=== PATIENT | female | born 1930 | race Caucasian/White ===

== ENCOUNTER → 2016-04-22 | Outpatient (REF) | payer MEDICARE, BC | LOC: M LAB REF 17:11 | PROVIDERS: ATTEND Nurse Practitioner Adult Health | DX: I10 Essential (primary) hypertension (principal) ==

== ENCOUNTER 2018-04-03 08:21 | Emergency (ER) | payer MEDICARE, BC ==
[~2018-04-03] VITALS: Ht 157.5 cm; Wt 77.3 kg
[2018-04-03] MEDS ORDERED: OMEP40CA2 PO (08:28)
[2018-04-03] MEDS ORDERED: HYDR12.55 PO (08:28)
[2018-04-03] MEDS ORDERED: LOSA50TA73 PO (08:29)
[2018-04-03] MEDS ORDERED: LEVO100T5 PO (08:29)
[2018-04-03] MEDS ORDERED: ASPI81TA85 PO (08:29)
[2018-04-03] MEDS ORDERED: SIMV40TA2 PO (08:29)
[2018-04-03] MEDS ORDERED: ACETAMINOPHEN 325 MG TAB PO ONE (08:45)
--- NOTE | 2018-04-03 09:23 | REP ---
Clinical: Atraumatic ankle pain. Technique: AP, lateral, bilateral oblique views of the left ankle. Findings: Age-related osteodystrophy and degenerative changes are appreciated. No evidence for acute fracture or dislocation. Ankle mortise is intact. Mild soft tissue swelling cannot be excluded and should be correlated clinically. Lateral view demonstrates moderate calcaneal heal spur as well as calcifications of the calcaneal insertion of the Achilles tendon. 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 No acute fracture dislocation. Electronically Signed by Aidan Martin MD 04/03/2018 09:15 A
[2018-04-03] MEDS ORDERED: ARTH650T11 PO (09:51)
[2018-04-03 10:02] VITALS: BP 133/63
== END 2018-04-03 10:05 | disposition home or self-care (01) ==
LOC: M ED 08:21
DX: M19.072 Primary osteoarthritis, left ankle and foot (principal); I10 Essential (primary) hypertension; E03.9 Hypothyroidism, unspecified; K21.9 Gastro-esophageal reflux disease without esophagitis; G62.9 Polyneuropathy, unspecified; F17.200 Nicotine dependence, unspecified, uncomplicated; Z79.899 Other long term (current) drug therapy; Z79.82 Long term (current) use of aspirin

== ENCOUNTER 2018-12-31 15:31 | Emergency (ER) | payer MEDICARE, BC ==
[~2018-12-31] VITALS: Ht 157.5 cm; Wt 76.8 kg
[~2018-12-31 15:31] MED LIST: ARTH650T4 PO; ASPI81TA85 PO; HYDR12.55 PO; LEVO100T5 PO; LOSA50TA88 PO; OMEP40CA97 PO; SIMV40TA20 PO
[2018-12-31 18:21] LABS: BASO % 0.3 % (0.0-1.0); EOS # 0.1 10^3/uL (0.0-0.5); EOS % 1.1 % (0.0-3.0); HEMATOCRIT 40.9 % (36.0-47.0); HEMOGLOBIN 13.5 g/dl (12.0-15.5); LYMPH # 0.5 10^3/uL (1.5-5.0); LYMPH % 4.9 % (24.0-44.0); MEAN CORPUSCULAR HEMOGLOBIN 31.3 pg (27.0-33.0); MEAN CORPUSCULAR VOLUME 94.7 fl (80.0-96.0); MONO # 0.4 10^3/uL (0.0-0.8); MONO % 3.7 % (0.0-5.0); NEUTROPHILS # 9.8 10^3/uL (1.5-8.5); NEUTROPHILS % 89.5 % (36.0-66.0); PLATELET COUNT, AUTOMATED 260 10^3/uL (150-450); RED BLOOD COUNT 4.32 10^6/uL (4.00-5.40)
[2018-12-31 18:35] LABS: INR 1.14; PROTHROMBIN TIME 14.3 SECONDS (11.8-14.0)
[2018-12-31 18:36] LABS: PARTIAL THROMBOPLASTIN TIME 35.8 SECONDS (25.0-38.4)
[2018-12-31 18:52] LABS: ALBUMIN 3.3 GM/DL (3.2-5.2); ALT/SGPT 23 U/L (12-78); BILIRUBIN,DIRECT < 0.1 MG/DL (0.0-0.2); BILIRUBIN,TOTAL 0.3 MG/DL (0.2-1.0); BLOOD UREA NITROGEN 27 MG/DL (7-18); CALCIUM LEVEL 8.8 MG/DL (8.8-10.2); CARBON DIOXIDE LEVEL 23 MEQ/L (21-32); CHLORIDE LEVEL 107 MEQ/L (98-107); CK-MB VALUE MASS 1.5 NG/ML (<3.6); CPK CREATINE PHOSPHOKINASE 46 U/L (26-192); CREATININE FOR GFR 0.86 MG/DL (0.55-1.30); GLOMERULAR FILTRATION RATE > 60.0 (>32); GLUCOSE, FASTING 103 MG/DL (70-100); LIPASE 162 U/L (73-393); MB/CK RELATIVE INDEX 3.26 (< OR =4); POTASSIUM SERUM 3.8 MEQ/L (3.5-5.1); SODIUM LEVEL 140 MEQ/L (136-145); TOTAL PROTEIN 7.2 GM/DL (6.4-8.2); TROPONIN I < 0.02 NG/ML (< 0.10)
[2018-12-31] MEDS ORDERED: NS 500 ML IV ONE (20:00)
[2018-12-31] MEDS ORDERED: ISOVUE-370 76% 100ML VIAL (Q9967) As Ordered ONE (20:01)
--- NOTE | 2018-12-31 21:06 | REPVR ---
PROCEDURE INFORMATION: Exam: CT Chest With Contrast Exam date and time: 12/31/2018 8:05 PM Clinical history: 88 years old, female; Abnormal findings; Abnormal radiologic exam of lung or chest; Additional info: B/l lung densities cxr- CT recommended TECHNIQUE: Imaging protocol: Computed tomography of the chest with intravenous contrast. 3D rendering: MIP reconstructed images were created and reviewed. Radiation optimization: All CT scans at this facility use at least one of these dose optimization techniques: automated exposure control; mA and/or kV adjustment per patient size (includes targeted exams where dose is matched to clinical indication); or iterative reconstruction. Contrast material: ISOVUE 370; Contrast volume: 75 ml; Contrast route: IV; COMPARISON: CR Chest, 2 view PA, Lat 12/31/2018 5:49 PM FINDINGS: Lungs: Prominent subpleural interstitial markings with subpleural bullous changes. There are numerous irregular densities with some retraction, any of which may reflect malignancy. There is a lobular mass in the lateral right apex with stranding extending into the surrounding lung parenchyma which is viewed with a high level of suspicion measuring 16 x 14 x 14 mm. There is an area of irregular density with stranding and retraction of the major fissure in the posterior right upper lobe which may reflect a focus of scar although malignancy is not excluded and measures approximately 3.0 x 1.3 x 1.8 cm. There is a small nodule in the lateral right upper lobe which is irregular and measures 7 mm which may reflect a satellite lesion. There is some stranding and irregular density in the superior segment of the left lower lobe with minimal volumetric soft tissue components with an irregular area which measures 11 mm and may reflect scar although associated malignancy is not excluded. There is minimal scattered fibro-atelectatic change. Pleural space: Unremarkable. No pneumothorax. No pleural effusion. Heart: Unremarkable. No cardiomegaly. No pericardial effusion. Aorta: Unremarkable. No aortic aneurysm. Other arteries: Prominent calcified plaque at the origin of the celiac artery where probable high-grade stenosis. There is soft plaque in the caudal left aspect of the proximal SMA with mild segmental stenosis. Plaque with mild origin stenoses of the renal arteries. Lymph nodes: Unremarkable. No enlarged lymph nodes. Gallbladder and bile ducts: The gallbladder measures 4.0 cm in diameter with no stones. The CBD measures 7 mm. Bones/joints: Posterior osteophytes at L1-L2 centrally with moderate secondary spinal stenosis. Soft tissues: Unremarkable. IMPRESSION: 1. Subpleural interstitial prominence with bullous change and minimal scattered fibro-atelectatic change consistent with underlying lung disease. 2. There are several irregular nodular densities bilaterally. The most suspicious is in the lateral right apex measuring 16 x 14 x 14 mm. The second most suspicious area is irregular in the posterior right upper lobe adjacent to the major fissure measuring 3.0 x 1.3 x 1.8 cm. There is also an area of stranding minimal volumetric soft tissue in the superior segment of the left lower lobe with largest solid soft tissue component measuring 11 mm and may reflect scar although malignancy is not excluded. There is a 7 mm irregular nodule in the lateral right upper lobe which may reflect a satellite lesion. Highly suspicious nodule(s). Consider PET/CT, or tissue sampling.(Courtney et al., Fleischner Society, 2017). 3. 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 There is probable mild origin stenoses of the renal arteries. 4. Borderline distention of the gallbladder with mild dilatation of the CBD measuring 7 mm with tapering to the ampulla. 5. Posterior central osteophytes at L1-L2 with moderate secondary spinal stenosis. Electronically signed by: Harjit Vaughn On 12/31/2018 21:06:11 PM
[2018-12-31 21:20] LABS: CK-MB VALUE MASS 1.5 NG/ML (<3.6); CPK CREATINE PHOSPHOKINASE 29 U/L (26-192); MB/CK RELATIVE INDEX 5.17 (< OR =4); TROPONIN I < 0.02 NG/ML (< 0.10)
--- NOTE | 2018-12-31 22:07 | ECGEPIP ---
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
[2018-12-31] MEDS ORDERED: GI COCKTAIL 50ML BTL(HYOSCYAMINE/MAALOX/LIDOCAINE VISCOUS)(1:3:1) PO ONE (22:15)
[2019-01-01 00:12] VITALS: BP 156/72
--- NOTE | 2019-01-01 07:01 | REP ---
CHEST PA AND LATERAL: 12/31/2018. Clinical history: Abdominal pain. Comparison: Portable chest 04/11/2014. Findings: Lungs are well inflated. This eventration of the right diaphragm. Some fibrotic changes are seen in the mid upper lung zones. Irregular densities could be pleural or parenchymal in both upper lung zones. There is no definite effusion, heart has left ventricular configuration with some mild left atrial enlargement also suggested. The aorta is tortuous, ectatic and with calcifications at the arch. Airway intact. These are unchanged. The hilar are symmetric. Bony thorax shows no acute compression deformity. Impression: 1. Pleural and/or parenchymal densities in the upper lung zones bilaterally. I could not exclude multifocal infiltrates or nodules versus pleural plaques or scar. CT recommended. Findings not visible on the portable chest 4 years ago. 2. Left ventricular configuration of the heart without vascular redistribution or pulmonary edema. 3. Tortuous, calcified and ectatic aorta, stable from prior. Electronically Signed by Brian Hooper MD 01/01/2019 08:15 A
--- NOTE | 2019-01-02 10:28 | ED PDOC ---
Post-Departure Follow-Up dr kay faxed formal report of cxr and ct chest for fu Daniel Jones MD Jan 02, 2019 10:28
[2019-01-16] MEDS ORDERED: MULTTAB61 PO (11:55)
== END 2019-01-01 00:40 | disposition home or self-care (01) ==
LOC: M ED 15:31
DX: K52.9 Noninfective gastroenteritis and colitis, unspecified (principal); R10.9 Unspecified abdominal pain; R91.8 Other nonspecific abnormal finding of lung field; I77.4 Celiac artery compression syndrome; K55.1 Chronic vascular disorders of intestine; M25.78 Osteophyte, vertebrae; Q25.46 Tortuous aortic arch; I70.0 Atherosclerosis of aorta; I77.819 Aortic ectasia, unspecified site; I10 Essential (primary) hypertension; E78.5 Hyperlipidemia, unspecified; Z87.448 Personal history of other diseases of urinary system; K21.9 Gastro-esophageal reflux disease without esophagitis; G62.9 Polyneuropathy, unspecified; E03.9 Hypothyroidism, unspecified; F17.200 Nicotine dependence, unspecified, uncomplicated; Z82.49 Family history of ischemic heart disease and other diseases of the circulatory system; Z79.82 Long term (current) use of aspirin; Z79.899 Other long term (current) drug therapy
CPT/HCPCS: 36415; 71046; 71260; 80048; 80076; 81001; 82550; 82553; 83690; 84484; 85025; 85610; 85730; 93005; 99284; Q9967

== ENCOUNTER 2019-01-30 06:00 | Day surgery (SDC) | payer MEDICARE, BC ==
[~2019-01-30] VITALS: Ht 157.5 cm; Wt 73.8 kg
[~2019-01-30 06:00] MED LIST changes: +ARTH650T11 PO; -ARTH650T4 PO; +MULTTAB61 PO; +SIMV40TA2 PO; -SIMV40TA20 PO
[2019-01-30] MEDS ORDERED: LR 1,000 ML IV ONE (07:00)
[2019-01-30] MEDS ORDERED: LIDOCAINE 1% SDV INJ 30 ML VIAL As Ordered ONE (07:11)
[2019-01-30] MEDS ORDERED: CETACAINE SPRAY 5GM As Ordered ONE (07:11)
[2019-01-30] MEDS ORDERED: EPINEPHrine 1MG/10ML SYRINGE 1.5IN As Ordered ONE (07:11)
[2019-01-30] MEDS ORDERED: THROMBIN SOLN 5,000 UNITS VIAL As Ordered ONE (07:11)
[2019-01-30] MEDS ORDERED: LIDOCAINE VISCOUS 2% SOLN 15ML UDC As Ordered ONE (07:12)
[2019-01-30] MEDS ORDERED: fentaNYL 100 MCG/2 ML INJECTION (J3010) As Ordered ONE (07:45)
[2019-01-30] MEDS ORDERED: PROPOFOL 200 MG/20 ML VIAL As Ordered ONE (07:45)
[2019-01-30] MEDS ORDERED: METOCLOPRAMIDE INJ 10MG/2ML VIAL (J2765) As Ordered ONE (07:45)
[2019-01-30] MEDS ORDERED: SUGAMMADEX SODIUM 500 MG/5 ML VIAL (BRIDION) As Ordered ONE (07:45)
[2019-01-30] MEDS ORDERED: ONDANSETRON 4MG/2ML VIAL (J2405) As Ordered ONE (07:45)
[2019-01-30] MEDS ORDERED: ROCURONIUM BROMIDE 50 MG/5 ML VIAL As Ordered ONE (07:45)
[2019-01-30] MEDS ORDERED: dexameTHASONE 4 MG/ML 1ML VIAL (J1100) As Ordered ONE (07:45)
[2019-01-30] MEDS ORDERED: LIDOCAINE 2% INJ 100 MG/5 ML SDV (FOR ANES.) As Ordered ONE (07:45)
[2019-01-30] MEDS ORDERED: ePHEDrine SULFATE 25 MG/5 ML(5MG/ML) SYRINGE As Ordered ONE (07:50)
[2019-01-30] MEDS ORDERED: LR 1,000 ML IV SCH (09:00)
[2019-01-30] MEDS ORDERED: ONDANSETRON 4MG/2ML VIAL (J2405) IV PRN (09:00)
[2019-01-30] MEDS ORDERED: fentaNYL 100 MCG/2 ML INJECTION (J3010) IV PRN (09:00)
[2019-01-30] MEDS ORDERED: METOCLOPRAMIDE INJ 10MG/2ML VIAL (J2765) IV PRN (09:00)
[2019-01-30] MEDS ORDERED: PERCOCET 5MG/325MG TAB PO PRN (09:00)
--- NOTE | 2019-01-30 09:12 | RO ---
DATE OF PROCEDURE: 01/30/2019 PREOPERATIVE DIAGNOSIS: Abnormal chest CT, multiple pulmonary nodules. POSTOPERATIVE DIAGNOSIS: Abnormal chest CT, multiple pulmonary nodules. FINDINGS: Dried secretions, minimal banding. PROCEDURE: Bronchoscopy with electromagnetic navigation and radial ultrasound. SURGEON: Dr. Geo Yarbrough BUSINESS ANALYST CONSULTANT: None ANESTHESIA: General. ESTIMATED BLOOD LOSS: 5 mL. SPECIMENS OBTAINED: 1. Cytology brush right upper lobe apical segment. 2. Transbronchial biopsies right upper lobe apical segment. 3. Fine needle aspiration (FNA) right upper lobe apical segment. 4. Bronchoalveolar lavage (BAL) right upper lobe apical segment. 5. Cytobrush left lower lobe superior segment. 6. Transbronchial biopsy left lower lobe superior segment. 7. BAL left lower lobe superior segment. 8. Cyto needle brush right upper lobe posterior segment. 9. Transbronchial biopsies right upper lobe posterior segment. No observed complications. DESCRIPTION OF PROCEDURE: After informed consent was reviewed with the patient in the preoperative area, she was brought back to operating room (OR) number 8, which is a pre mapped room. General anesthesia was initiated with an 8.5 endotracheal tube and the case was handed over to me. A time out was performed with two patient identifiers, identifying correct site and correct procedure. The 1T-190 bronchoscope was then inserted. There were large amounts of secretions just distal to the tube that were suctioned, dried mucus secretions. All airways were suctioned. The airways did appear fairly dry with some banding and pitting throughout the airways. The trachea itself was midline. The gil was sharp. Right and left bronchus was normal except for minimal amounts of secretions. Secretions were clear. RB1-10 was inspected. There was some minimal fishmouthing of the right upper lobe, but no significant endobronchial lesions. There was banding and pitting. RB1-3 without endobronchial lesions, RB4-10 were without endobronchial lesions. I then went to the left side. The left mainstem was normal. LB1-10 again without endobronchial lesions, but some banding. The bronchoscope was then retracted into the endotracheal tube and the navigational guide was inserted. Target #1 in the right upper lobe apical segment was then navigated to. This was confirmed with fluoroscopy. The LG guide was removed. Radial ultrasound probe was then inserted to ensure tissues. The LG guide was then removed. Biopsies were then performed in the form of a cytology brush, transbronchial biopsies, GenCut FNA, and then BAL based on the fact that there was quite a bit of macrophages in the area. The LG guide was then removed from this area during that BAL. I then navigated to target #2 in the left lower lobe superior segment. Cytology brush transbronchial biopsies and BAL was then performed. I then again navigated to target #3 in the right upper lobe posterior segment. Cyto needle brush and transbronchial biopsies were performed. After adequate sampling, the LG guide was removed. Hemostasis was assured. All airways were suctioned. There were no observed complications. A postprocedure chest x-ray is pending. [facility]
--- NOTE | 2019-01-30 09:45 | REP ---
Single view chest: Indication: Postprocedural assessment. Comparison: Chest CT dated 12/31/2018. Findings: There is no pneumothorax or significant pleural effusion. The multiple pulmonary nodules are better demonstrated on the recent CT evaluation. Cardiac silhouette is at the upper limits of normal. Impression: No pneumothorax. Electronically Signed by Stu Aleman DO 01/30/2019 09:36 A
[2019-01-30 10:08] VITALS: BP 160/70
[2019-01-30 14:54] LABS: SOURCE LEFT LOWER LOBE
[2019-01-30 14:55] LABS: APPEARANCE HAZY (CLEAR); COLOR RED (COLORLESS)
[2019-01-30 14:57] LABS: APPEARANCE HAZY (CLEAR); COLOR PINK (COLORLESS); SOURCE RIGHT UPPER LOBE
== END 2019-01-30 10:27 | disposition home or self-care (01) ==
LOC: M SDC 06:00
PROVIDERS: ATTEND Internal Medicine Pulmonary Disease
DX: R91.8 Other nonspecific abnormal finding of lung field (principal); J43.1 Panlobular emphysema; E03.9 Hypothyroidism, unspecified; I10 Essential (primary) hypertension; E78.00 Pure hypercholesterolemia, unspecified; Z79.899 Other long term (current) drug therapy; F17.218 Nicotine dependence, cigarettes, with other nicotine-induced disorders
CPT/HCPCS: 31623; 31624; 31627; 31628; 31629; 31652; 71045; 76000; 87070; 87102; 87116; 87205; 87206; 88104; 88173; 88305; 89050; J1100; J2405; J2765; J3010

== ENCOUNTER 2019-05-07 07:29 | Emergency (ER) | payer MEDICARE, BC ==
[~2019-05-07] VITALS: Ht 160 cm; Wt 76.4 kg
[~2019-05-07 07:29] MED LIST changes: -ARTH650T11 PO; +ARTH650T4 PO; -SIMV40TA2 PO; +SIMV40TA20 PO
[2019-05-07] MEDS ORDERED: ASPIRIN 81 MG CHEW TABLET PO ONE (08:00)
[2019-05-07] MEDS: MORPHINE 2 MG/ML 1ML VIAL (J2270) IV PRN ×2 (08:04→08:43)
--- NOTE | 2019-05-07 08:06 | ECGEPIP ---
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
[2019-05-07] MEDS ORDERED: KETOROLAC 30 MG/ML VIAL (J1885) As Ordered ONE (08:11)
[2019-05-07] MEDS ORDERED: ISOVUE-370 76% 100ML VIAL (Q9967) As Ordered ONE (08:13)
--- NOTE | 2019-05-07 08:14 | REP ---
Portable chest , 07:55 a.m., single AP view with the patient sitting: Comparisons are the portable chest dated 01/30/[address] dated 12/31/2018. On the comparison chest CT there were multiple lung nodules, particularly in the upper lung zones. These are better appreciated by CT than on plain films. Some of these nodules were visible on 01/30/2019 but are not visible today. Follow-up chest CT might be considered for evaluation of these lung nodules. A few nodular densities are identified superiorly in the left lung today. The interstitium is mildly coarsened diffusely, however this is unchanged, suggestive of chronic lung disease. The left costophrenic angle is effaced. This could represent a left pleural effusion or could represent artifact from portable positioning. Cardiac size appears enlarged, unchanged. Impression: Nodular densities as described. Chest CT might be considered. Question left pleural effusion versus artifact from portable positioning. Cardiomegaly. Chronically mildly coarsened interstitium. Electronically Signed by Lex Wagner MD 05/07/2019 08:06 A
[2019-05-07] MEDS ORDERED: NS 1,000 ML IV ONE (08:15)
[2019-05-07] MEDS ORDERED: KETOROLAC 30 MG/ML VIAL (J1885) IV ONE (08:15)
[2019-05-07 08:18] LABS: BASO # 0.1 10^3/uL (0.0-0.2); BASO % 0.7 % (0.0-1.0); EOS # 0.2 10^3/uL (0.0-0.5); EOS % 1.6 % (0.0-3.0); HEMATOCRIT 38.8 % (36.0-47.0); HEMOGLOBIN 12.6 g/dl (12.0-15.5); LYMPH # 1.6 10^3/uL (1.5-5.0); LYMPH % 13.4 % (24.0-44.0); MEAN CORPUSCULAR HEMOGLOBIN 30.3 pg (27.0-33.0); MEAN CORPUSCULAR HGB CONC 32.5 g/dl (32.0-36.5); MEAN CORPUSCULAR VOLUME 93.3 fl (80.0-96.0); MONO # 0.8 10^3/uL (0.0-0.8); MONO % 7.1 % (0.0-5.0); NEUTROPHILS # 8.9 10^3/uL (1.5-8.5); NEUTROPHILS % 76.9 % (36.0-66.0); PLATELET COUNT, AUTOMATED 304 10^3/uL (150-450); RED BLOOD COUNT 4.16 10^6/uL (4.00-5.40); WHITE BLOOD COUNT 11.5 10^3/uL (4.0-10.0)
[2019-05-07 08:28] LABS: INR 1.15; PROTHROMBIN TIME 14.4 SECONDS (11.8-14.0)
[2019-05-07 08:30] LABS: PARTIAL THROMBOPLASTIN TIME 43.8 SECONDS (25.0-38.4)
[2019-05-07 08:47] LABS: ALBUMIN 3.6 GM/DL (3.2-5.2); ALT/SGPT 18 U/L (12-78); BILIRUBIN,DIRECT 0.2 MG/DL (0.0-0.2); BILIRUBIN,TOTAL 0.6 MG/DL (0.2-1.0); CK-MB VALUE MASS 1.9 NG/ML (<3.6); CPK CREATINE PHOSPHOKINASE 29 U/L (26-192); FREE T4 1.55 NG/DL (0.76-1.46); LIPASE 99 U/L (73-393); MB/CK RELATIVE INDEX 6.55 (< OR =4); NT-PRO BNP 297 PG/ML (<450); TOTAL PROTEIN 7.3 GM/DL (6.4-8.2); TROPONIN I < 0.02 NG/ML (< 0.10)
--- NOTE | 2019-05-07 09:02 | REP ---
CT of the chest with IV contrast, CT pulmonary artery angiography: Comparison is the chest CT of 12/31/2018. On the current study there are bilateral lower lobe infiltrates as an interval change. There are irregular nodules in the right upper lobe that have not significantly changed in size. There is an irregular nodule in the superior segment of the left lower lobe that has increased in density and size. This measures 2.3 cm today and measured 1.2 cm previously. There is a stranding extending medially from the nodule as previously. There are subpleural bulla throughout the lung dunn bilaterally, unchanged. There are no emboli in the pulmonary trunk or central pulmonary arteries. There are no emboli in the pulmonary lobe or segment branches. The thoracic aorta is unremarkable except for calcified atheroma. Cardiac size is enlarged, unchanged. There is no pericardial effusion. In the upper abdomen the visualized areas of the liver, gallbladder, pancreas and spleen are unremarkable. There is no adrenal mass. Calcified atheroma is again noted at the origins of the celiac artery and SMA also resulting in stenosis. There is no mediastinal, hilar or axillary lymphadenopathy. Impression: Bilateral lower lobe infiltrates. Bilateral lung nodules as described. Bilateral subpleural bulla. Cardiomegaly without pericardial effusion. 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 Electronically Signed by Lex Wagner MD 05/07/2019 08:53 A
--- NOTE | 2019-05-07 09:10 | REP ---
CT of the abdomen and pelvis with IV contrast, without bowel contrast: Studies performed. Contiguous with the chest CT this same date. There are no comparisons. The hepatic parenchyma, gallbladder, pancreas and spleen are normal size and unremarkable. The adrenals are unremarkable. The kidneys are unremarkable. The abdominal aorta is unremarkable except for occasional calcified atheroma. There is calcified atheroma at the origin of the SMA and celiac artery. The, possibly resulting in stenosis. There is no periaortic adenopathy or mass. There is no bowel distension or obstruction. The mesentery is unremarkable. There is no ascites. There are diverticula in the descending colon and sigmoid colon without diverticulitis. Pelvis: The the patient indicates she has an appendectomy. The cecum is on a redundant mesentery and resides medial to the descending colon. The uterus and adnexa are unremarkable. The bladder is unremarkable. There is no adenopathy or ascites. 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 There is a large osteophyte projecting posteriorly at the L1-2 disc space encroaching the spinal canal at this level. Impression: There is no bowel distension or obstruction. There is no ascites, adenopathy or mass. There is diverticulosis without diverticulitis. 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 Appendectomy. Large posterior osteophyte encroaching the spinal canal at L1-2. Electronically Signed by Lex Wagner MD 05/07/2019 09:02 A
--- NOTE | 2019-05-07 09:58 | REP ---
Abdominal right upper quadrant ultrasound for right upper quadrant and mid epigastric pain: Comparison is the abdomen/pelvis CT performed earlier today. There is no cholelithiasis, gallbladder wall thickening or pericholecystic fluid. The the gallbladder wall measures up to 2.6 mm thickness. There is no intrahepatic or extrahepatic biliary duct dilatation. The common biliary duct measures 5 mm in diameter. The hepatic parenchyma is homogeneous and otherwise unremarkable. The visualized areas of the pancreas are unremarkable. Portions of the pancreas are obscured by bowel gas. The right kidney is normal size measuring 10.7 x 4.7 x 4.6 cm. There is no right renal hydronephrosis or calculus. There is no right renal solid or cystic mass. Impression: Essentially negative abdominal right upper quadrant ultrasound. Portions of the pancreas are obscured by bowel gas. Electronically Signed by Lex Wagner MD 05/07/2019 09:48 A
[2019-05-07] MEDS ORDERED: LEVO112T25 PO (10:06)
[2019-05-07] MEDS ORDERED: OMEP-218 PO (10:06)
[2019-05-07] MEDS ORDERED: SIMV20TA22 PO (10:06)
[2019-05-07] MEDS ORDERED: ACET-907 PO (10:06)
[2019-05-07 13:14] VITALS: BP 135/76
--- NOTE | 2019-05-08 11:02 | ER ---
DATE OF CONSULTATION: 05/07/2019 REASON FOR CONSULTATION: Epigastric pain of uncertain etiology. HISTORY OF THE PRESENT ILLNESS: The patient is an 88-year-old woman who presented to the emergency department at approximately 7:30 on the morning of 05/07/2019. She reported that she had developed fairly sudden onset of severe pain at approximately 10 o'clock on 05/06/2019. She described pain that was in the distal retrosternal area and extending down into the epigastrium. She describes that it had persisted and was constant for the time of onset. Once the pain extended down to her epigastrium it then extended to both sides of the upper abdomen. She denied any nausea or vomiting. She tried drinking some water without relief. She was unable to sleep and had tried moving around also without benefit. She denies any history of prior similar pains. She describes the pain as severe and constant. She presented to the emergency department and received intravenous morphine as well as a dose of Toradol. Following this the pain remitted. She was evaluated with some laboratory studies including a CBC with a differential, coagulation studies, and a chemistry profile including liver function tests, Troponin, lactic acid and lipase. She then had imaging studies which included a plain chest x-ray. She had a CT angiogram of the chest followed by a CT scan of the abdomen and pelvis and then a gallbladder ultrasound. Her pain resolved. Her imaging and labs showed no discrete source for her severe pain. I was contacted by Dr. Paul of the emergency department who requested that I evaluate the patient regarding the possible etiology and to render an opinion as to whether the patient could be discharged home. 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 MEDICATIONS: The patient's current medications include: - Tylenol as needed - aspirin 81 mg by mouth daily - hydrochlorothiazide 12.5 mg by mouth daily - levothyroxine 112 mcg by mouth daily - losartan 50 mg by mouth nightly - a multivitamin tablet daily - omeprazole 20 mg by mouth daily - simvastatin 20 mg by mouth nightly The patient denies any known medication allergies. PAST SURGICAL HISTORY: Significant for an appendectomy when she was approximately [id number]. This was done through a short low midline incision. MEDICAL HISTORY: Patient is a patient of Dr. Dorian Gonzales. She has a history of hypertension and hyperlipidemia. She has some gastroesophageal reflux, for which she is on routine proton pump inhibitor. She has several known lung nodules, which were apparently biopsied though the completeness of the biopsies I do not know, and this was some time ago. 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 This was noted in a CAT scan from December of 2018. On further review of her old records she actually had undergone what appear to be bronchoscopic biopsies of several lung nodules in January of [address] Yarbrough. She has hypothyroidism. She is a smoker and reports that she is currently smoking, I think she said seven cigarettes per day. FAMILY HISTORY: The patient's father had dementia and a brother had heart disease. REVIEW OF SYSTEMS: The patient denies any nausea or vomiting. She has had no history of hepatitis or pancreatitis or yellow jaundice. She has had no melena or hematochezia. She reports at the time of my exam that her pain has resolved. Denies any history of seizure or stroke. She has had no chest pain, palpitations or history of heart attack. She does acknowledge her history of smoking and she has not had currently any increased short of breath, cough or sputum production. She denies any history of dysuria or hematuria. She does report having had a kidney stone in the distant past. She has no significant bone or joint issues. PHYSICAL EXAMINATION: The patient is lying quietly on the hospital stretcher looking quite comfortable. She is alert and readily conversant with me. She seems knowledgeable about her health history. Her most recent vital signs show a pulse of 76, blood pressure of 146/76 and a respiratory rate of 16. Oxygen saturation on room air is 92%. Skin is warm and dry. Sclerae are anicteric. The neck is supple without mass or bruit. Heart exam shows a regular rate and rhythm, and she is not tachycardiac. The lungs show distant breath sounds bilaterally. I do not hear any rales or wheezes. The abdomen is flat. She has a short low midline scar. There is no sign of hernia. She has bowel sounds present in all four quadrants. There is a faint vascular bruit in the upper midabdomen. The abdomen is soft throughout without appreciable mass and there is no significant tenderness. Extremities show no significant edema. Her ankles she reports are chronically somewhat thickened. Laboratory studies include a CBC showing a white count of 12, hemoglobin of 13, hematocrit of 39 and a platelet count of 304,000. Differential count showed 77% neutrophils, 13% lymphocytes, and 7% monocytes. Her coagulation studies showed a PT of 14.4, INR of 1.15 and a PTT of 44. Chemistry profile included a sodium of 133, potassium 3.4, chloride 98, CO2 of 24, BUN of 17, creatinine of 0.6, and her glucose was 149. Her liver function tests were all entirely normal. Lactic acid was normal at 1.1. The troponin was less than 0.02 with a BNP of 297. Total protein and albumin were normal, and she had a lipase of 99. Her imaging included a chest x-ray that showed some chronic changes with some lung nodules that have been noted previously. She had her CT angiogram that revealed several nodules in the lungs bilaterally. There were some bilateral lower lobe infiltrates. She had some subpleural bullae. She was noted to have calcified atherosclerotic areas at the origins of the celiac artery and superior mesenteric artery and this was felt to be similar to a prior study. It was noted that her lung nodules were interpreted as increased in size in the left lower lobe. A CT scan of the abdomen and pelvis showed no evidence of free fluid or free air or acute infection or inflammation. There was no sign of obstruction. Diverticulosis was noted without diverticulitis. A gallbladder ultrasound showed negative scanning with no evidence of gallbladder wall thickening and no sign of cholelithiasis. IMPRESSION/RECOMMENDATIONS: The patient had approximately 8-10 hours of severe retrosternal and epigastric abdominal pain which has now completely resolved. She had no associated nausea or vomiting just the pain. She has known lung nodules and one of these appears to have increased in size in the left lung though the others were felt to be stable. She has known atherosclerotic changes at the origins of the celiac axis and the superior mesenteric artery, though these were also felt to be unchanged from a prior scan. There was no sign of other acute intra-abdominal pathology to account for her pain. I do not believe her gallbladder is responsible given the negative imaging. She is on Protonix or omeprazole routinely for some reflux and this would seem to make it less likely that this represents an attack of severe reflux or gastritis. Also, I would not have expected that to resolve so suddenly if that were the cause. It seems unlikely to me that this represents a temporary ischemic event from her atherosclerotic disease, though I do not believe this can be completely ruled out at this time. She does not report symptoms of intestinal angina otherwise as I might expect if her narrowing was so severe as to cause her pain now. I think it would be safe for her to be discharged home given her thorough workup. I would recommend that she followup with her primary physician. 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 GENET
== END 2019-05-07 13:41 | disposition home or self-care (01) ==
LOC: M ED 07:29
DX: R10.9 Unspecified abdominal pain (principal); I70.8 Atherosclerosis of other arteries; I77.4 Celiac artery compression syndrome; R07.9 Chest pain, unspecified; I10 Essential (primary) hypertension; E78.5 Hyperlipidemia, unspecified; F17.200 Nicotine dependence, unspecified, uncomplicated; R91.8 Other nonspecific abnormal finding of lung field; K21.9 Gastro-esophageal reflux disease without esophagitis; E03.9 Hypothyroidism, unspecified; K57.30 Diverticulosis of large intestine without perforation or abscess without bleeding; I51.7 Cardiomegaly; Z79.82 Long term (current) use of aspirin; Z79.899 Other long term (current) drug therapy
CPT/HCPCS: 71045; 71275; 74177; 76705; 80047; 80076; 82550; 82553; 83605; 83690; 83880; 84439; 84443; 84484; 85025; 85610; 85730; 87040; 87077; 93005; 93041; 94760; 96361; 96374; 96375; 96376; 99285; J1885; J2270; Q9967

== ENCOUNTER 2020-09-30 14:18 | Outpatient (CLI) | payer MEDICARE, BC ==
[~2020-09-30] VITALS: Ht 157.5 cm; Wt 66.2 kg
[~2020-09-30 14:18] MED LIST changes: +ACET-907 PO; +ARTH650T11 PO; -ARTH650T4 PO; -ASPI81TA85 PO; +ASPI81TA86 PO; +LEVO112T25 PO; +OMEP-218 PO; +OMEP40CA4 PO; -OMEP40CA97 PO; +SIMV20TA22 PO
[2020-09-30 14:20] VITALS: BP 134/60
[2020-09-30] MEDS: MAG SULF 1GM/100ML (MAG RUN) X 2 DOSES (2GM TOTAL) IV SCH ×4 (14:30→15:27)
[2020-09-30] MEDS ORDERED: GNP250TA9 PO (15:30)
[2020-09-30 16:40] VITALS: BP 135/60
== END 2020-09-30 16:40 | disposition home or self-care (01) ==
LOC: M INFU 14:18
PROVIDERS: ATTEND Internal Medicine
DX: E83.42 Hypomagnesemia (principal)
CPT/HCPCS: 96365; 96366; J3475

== ENCOUNTER 2020-12-02 14:27 | Outpatient (CLI) | payer MEDICARE, BC ==
[~2020-12-02] VITALS: Ht 157.5 cm; Wt 66.2 kg
[~2020-12-02 14:27] MED LIST changes: +GNP250TA9 PO
[2020-12-02 14:35] VITALS: BP 151/72
[2020-12-02] MEDS: MAG SULF 1GM/100ML (MAG RUN) X 2 DOSES (2GM TOTAL) IV SCH ×4 (14:42→15:42)
== END 2020-12-02 17:00 | disposition home or self-care (01) ==
LOC: M INFU 14:27
PROVIDERS: ATTEND Physician Assistant Medical
DX: E83.42 Hypomagnesemia (principal)
CPT/HCPCS: 96365; 96366; J3475

== ENCOUNTER → 2020-12-16 | Outpatient (CLI) | payer MEDICARE, BC ==
--- NOTE | 2020-12-16 12:59 | REP ---
INDICATION: PAIN. COMPARISON: 05/06/2016. CT 05/07/2019. TECHNIQUE: Five views lumbosacral spine. FINDINGS: There is mild compression of L1 which is a new finding. There is significant posterior osteophytic ridging at the L1-2 level. This likely causes focal spinal stenosis. There is normal alignment and lumbar lordosis. There is mild diffuse spurring. There is mild disc space narrowing and subchondral sclerosis at all levels. There is sclerosis and spurring at the posterior facet joints of L4-5 and L5-S1. The posterior elements are intact. There is mild curvature of the thoracolumbar spine convex to the right. IMPRESSION: Mild compression deformity of L1, new since prior CT of 05/07/2019. There is significant posterior osteophytic ridging at the L1-2 level likely causing focal spinal stenosis at that level. There are diffuse degenerative changes as discussed above. <Electronically signed by Lex Paul > 12/16/20 1700
== END ==
LOC: M PLAIMG 10:07
DX: M54.5 Low back pain (principal); M51.36 Other intervertebral disc degeneration, lumbar region; M25.78 Osteophyte, vertebrae; M46.06 Spinal enthesopathy, lumbar region

== ENCOUNTER 2021-01-06 11:43 | Inpatient (IN) | payer MEDICARE, BC ==
[~2021-01-06] VITALS: Ht 157.5 cm; Wt 65.0 kg
--- NOTE | 2021-01-06 12:33 | REP ---
INDICATION: Altered Mental Status. All COMPARISON: None. TECHNIQUE: Helical scanning is acquired. 5 mm axial images were reformatted. Coronal MPR images were generated. 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 There is virtually complete opacification of the left maxillary sinus and there is complete opacification of the right maxillary sinus. The maxillary sinus benavidez are thickened consistent with chronic bilateral maxillary sinusitis. There is partial opacification of the right side of the sphenoid and of both anterior ethmoid air cells. The frontal sinuses are are opacified bilaterally as well. No intraorbital abnormality is appreciated. There is vascular calcification at the carotid siphons bilaterally. The bony calvarium is intact. On soft tissue window settings, there is mild generalized volume loss. There are periventricular low-density changes consistent with small vessel atherosclerotic disease. There is a lesion in the right frontal lobe characterized by mottled low-density, gyral distortion, and subtle mass effect. I cannot exclude an intracranial mass, less likely recent infarction. No other focal mass effect is seen. There is no extra-axial fluid collection or intracranial hemorrhage noted. IMPRESSION: Vascular calcification, generalized volume loss and small vessel changes are seen. There is also a inhomogeneous mixed density lesion in the right frontal lobe of uncertain significance. Mass suspected. The subacute infarction less likely. Consider MRI scanning, preferably without and with IV gadolinium. Failing this, postcontrast CT may provide additional information. <Electronically signed by Jude Fatima > 01/06/21 [id number]
[2021-01-06 12:52] LABS: BASO # 0.1 10^3/uL (0.0-0.2); BASO % 0.2 % (0.0-1.0); EOS % 0.1 % (0.0-3.0); HEMATOCRIT 24.8 % (36.0-47.0); HEMOGLOBIN 7.7 g/dl (12.0-15.5); LYMPH # 2.6 10^3/uL (1.5-5.0); LYMPH % 9.2 % (24.0-44.0); MONO # 1.3 10^3/uL (0.0-0.8); MONO % 4.5 % (2.0-8.0); NEUTROPHILS # 24.1 10^3/uL (1.5-8.5); NEUTROPHILS % 84.5 % (36.0-66.0); PLATELET COUNT, AUTOMATED 602 10^3/uL (150-450); RED BLOOD COUNT 2.85 10^6/uL (4.00-5.40); WHITE BLOOD COUNT 28.5 10^3/uL (4.0-10.0)
[2021-01-06 13:17] LABS: OSMOLALITY SERUM 298 MOSM/KG (280-301)
[2021-01-06 13:29] LABS: ALBUMIN 1.5 GM/DL (3.2-5.2); ALT/SGPT 81 U/L (12-78); BILIRUBIN,DIRECT 0.2 MG/DL (0.0-0.2); BILIRUBIN,TOTAL 0.3 MG/DL (0.2-1.0); BLOOD UREA NITROGEN 40 MG/DL (7-18); CALCIUM LEVEL 6.4 MG/DL (8.8-10.2); CARBON DIOXIDE LEVEL 28 MEQ/L (21-32); CHLORIDE LEVEL 105 MEQ/L (98-107); CK-MB VALUE MASS 1.6 NG/ML (<3.6); CPK CREATINE PHOSPHOKINASE 22 U/L (26-192); CREATININE FOR GFR 0.92 MG/DL (0.55-1.30); GLOMERULAR FILTRATION RATE > 60.0 (>32); GLUCOSE, FASTING 99 MG/DL (70-100); MB/CK RELATIVE INDEX 7.27 (< OR =4); POTASSIUM SERUM 3.6 MEQ/L (3.5-5.1); SODIUM LEVEL 140 MEQ/L (136-145); TOTAL PROTEIN 6.4 GM/DL (6.4-8.2); TROPONIN I < 0.02 NG/ML (< 0.10)
[2021-01-06 14:15] LABS: RSV AMPLIFICATION NEGATIVE (NEGATIVE)
[2021-01-06] MEDS ORDERED: PROHANCE 279.3MG/ML 15ML VIAL As Ordered ONE (15:06)
--- NOTE | 2021-01-06 16:34 | REPVR ---
PROCEDURE INFORMATION: Exam: MRA Head Without Contrast; Arteriography Exam date and time: 01/06/2021 3:54 PM Age: 89 years old Clinical indication: Other: Left sided facial droop; Right frontal mass; Further evaluat TECHNIQUE: Imaging protocol: Magnetic resonance angiography head without contrast. Exam focused on the arteries. COMPARISON: CT Head without contrast 01/06/2021 12:02 PM FINDINGS: ANTERIOR CIRCULATION: Right internal carotid artery: Intracranial segment is patent with no significant stenosis. No aneurysm. Right middle cerebral artery: No occlusion or significant stenosis. No aneurysm. Right anterior cerebral artery: No occlusion or significant stenosis. No aneurysm. Left internal carotid artery: Intracranial segment is patent with no significant stenosis. No aneurysm. Left middle cerebral artery: No occlusion or significant stenosis. No aneurysm. Left anterior cerebral artery: No occlusion or significant stenosis. No aneurysm. POSTERIOR CIRCULATION: Right vertebral artery: No occlusion or significant stenosis. No aneurysm. Left vertebral artery: No occlusion or significant stenosis. No aneurysm. Basilar artery: No occlusion or significant stenosis. No aneurysm. Right posterior cerebral artery: There is persistent origin of the right posterior cerebral artery. There is no stenosis. Left posterior cerebral artery: No occlusion or significant stenosis. No aneurysm. IMPRESSION: No acute abnormality. Electronically signed by: Thierry Ramos On 01/06/2021 16:34:42 PM
--- NOTE | 2021-01-06 16:44 | REPVR ---
PROCEDURE INFORMATION: Exam: MR Head Without and With Contrast Exam date and time: 01/06/2021 3:54 PM Age: 89 years old Clinical indication: Other: Left sided facial droop; Right frontal mass; Further evaluat TECHNIQUE: Imaging protocol: MR of the head without and with intravenous contrast. Contrast material: PROHANCE; Contrast volume: 12 ml; Contrast route: INTRAVENOUS (IV); COMPARISON: CT Head without contrast 01/06/2021 12:02 PM FINDINGS: Brain: There is a 3.0 x 2.8 x 2.7 cm enhancing mass in the medial right frontal lobe. The mass appears intra-axial, but extends to the medial cortical surface and abuts the adjacent falx. There is slight leftward bowing of the falx in this area. Mild vasogenic edema is present around the mass. 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 There are two tiny foci of restricted diffusion in the right parietal convexity, images 24-25 and 27. These are too small to confirm on the ADC map and cannot be confirmed or visualized on other sequences. No enhancement in this region is identified. This may represent two tiny acute/subacute cortical infarcts. Chronic small vessel ischemic disease is present in the cerebral white matter. No acute intracranial hemorrhage is identified. Cerebral ventricles: No hydrocephalus. Bones/joints: Unremarkable. Paranasal sinuses: There is complete opacification of the bilateral frontal and right maxillary sinuses. Near complete opacification of the left maxillary sinus and right sphenoid sinus is present. There is partial opacification of the ethmoid air cells. Mastoid air cells: Normal as visualized. No mastoid effusion. Orbital cavity: Unremarkable. Soft tissues: Unremarkable. IMPRESSION: 1. 3 cm right frontal lobe mass concerning for a high-grade primary SUPERVISING AIRPLANE P[employer] malignancy or metastatic lesion 2. Two tiny probable acute/subacute cortical infarcts in the right parietal convexity 3. Pansinusitis Electronically signed by: Thierry Ramos On 01/06/2021 16:43:45 PM
[2021-01-06] MEDS ORDERED: ASPIRIN 81 MG CHEW TABLET PO ONE (17:00)
--- NOTE | 2021-01-06 17:44 | HPEPDOC ---
[facility] Medical History & Physical Date of Admission Jan 06, 2021 Date of Service: Jan 06, 2021 History and Physical CHIEF COMPLAINT: weakness HISTORY OF PRESENT ILLNESS: 89 year old female presents for right sided weakness and difficulty swallowing which started 2-3 days ago. Her weakness has improved, and she feels her dysphagia has resolved. On examination she denies chest pain, shortness of breath, abdominal pain, nausea, vomiting, diarrhea, headaches, changes in vision or depressed mood. PAST MEDICAL HISTORY: #HTN #hypothyroidism #HLD #peripheral edema/neuropathy SOCIAL HISTORY: Nicotine abuse - 30 pack year history, few years ago cut down to a few cigarettes daily FAMILY HISTORY: Father: at 99 from natural causes Mother: at 83 with alzheimers dementia ALLERGIES: Please see below. REVIEW OF SYSTEMS: Negative except as per HPI HOME MEDICATIONS: Please see below. PHYSICAL EXAMINATION: Vital Signs: reviewed and within normal limits General: NAD, lying comfortably in bed, elderly HEENT: NC/AT, EOMI, right facial droop Neck: supple, no masses Chest: lungs CTA B/L Heart: +S1S2, RRR, no murmurs Abd: soft, NT, ND, +BS Ext: peripheral edema Skin: no rashes MSK: full ROM at large joints Neuro: right facial droop Psych: AAOx3 LABORATORY DATA: See below. MICROBIOLOGY: Please see below. A/P: 89 year old female presents for right sided weakness, started 3 days ago, improving. 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 #ARTIFICIAL INSEMINATION TECHNICIAN tumor - will discuss with oncology - check CT chest/abd/pelvis for tumors/metastatic disease - radha gar #CVA - neuro c/s - telemetry monitoring - PT/OT/ST - already on asa therapy, statin therapy #HTN - losartan #HLD - zocor #hypothyroidism - synthroid #DVT prophylaxis - mechanical Vital Signs Vital Signs Date Time Temp Pulse Resp B/P (MAP) Pulse Ox O2 Delivery O2 Flow Rate FiO2 01/06/21 16:35 117 18 96 Room Air 01/06/21 16:20 124/63 (83) 01/06/21 12:00 98.2 Laboratory Data Labs 24H Laboratory Tests 2 01/06/21 12:19: Immature Granulocyte % (Auto) 1.5, Neutrophils (%) (Auto) 84.5H, Lymphocytes (%) (Auto) 9.2L, Monocytes (%) (Auto) 4.5, Eosinophils (%) (Auto) 0.1, Basophils (%) (Auto) 0.2, Neutrophils # (Auto) 24.1H, Lymphocytes # (Auto) 2.6, Monocytes # (Auto) 1.3H, Eosinophils # (Auto) 0.0, Basophils # (Auto) 0.1, Nucleated Red Blood Cells % (auto) 0.0, Anion Gap 7L, Glomerular Filtration Rate > 60.0, Osmolality 298, Lactic Acid Level 1.3, Calcium Level 6.4L, Total Bilirubin 0.3, Direct Bilirubin 0.2, Aspartate Amino Transf (AST/SGOT) 103H, Alanine Amino transferase (ALT/SGPT) 81H, Alkaline Phosphatase 170H, Ammonia 23, Total Creatine Kinase 22L, Creatine Kinase MB 1.6, Creatine Kinase MB Relative Index 7.27H, Troponin I < 0.02, Total Protein 6.4, Albumin 1.5L, Albumin/Globulin Ratio 0.3L, Thyroid Stimulating Hormone (TSH) 2.260 01/06/21 13:22: Coronavirus (COVID-19)(PCR) NEGATIVE, Influenza Type A (RT-PCR) NEGATIVE, Influenza Type B (RT-PCR) NEGATIVE, Respiratory Syncytial Virus (PCR) NEGATIVE 01/06/21 14:34: Urine Color YELLOW, Urine Appearance HAZY, Urine pH 5.0, Urine Specific Ringle 1.009, Urine Protein NEGATIVE, Urine Glucose (UA) NEGATIVE, Urine Ketones NEGATIVE, Urine Blood 1+H, Urine Nitrite NEGATIVE, Urine Bilirubin NEGATIVE, Urine Urobilinogen 0.2, Urine Leukocyte Esterase NEGATIVE, Urine WBC (Auto) 2, Urine RBC (Auto) 2, Urine Hyaline Casts (Auto) 0, Urine Bacteria (Auto) NEGATIVE, Urine Squamous Epithelial Cells 3, Urine Mucus (Auto) SMALL, Urine Sperm (Auto) CBC/BMP Laboratory Tests 01/06/21 12:19 Home Medications Scheduled Aspirin (Aspirin EC) 81 Mg Tablet.dr, 81 MG PO DAILY Furosemide (Furosemide) 40 Mg Tablet, 40 MG PO DAILY Levothyroxine Sodium (Levoxyl) 112 Mcg Tablet, 112 MCG PO DAILY Losartan Potassium (Losartan Potassium) 50 Mg Tab, 50 MG PO QHS Magnesium Oxide (Magnesium) 250 Mg Tablet, 250 MG PO BID Pantoprazole Sodium (Pantoprazole Sodium) 40 Mg Tablet.dr, 40 MG PO DAILY Simvastatin (Simvastatin) 20 Mg Tablet, 20 MG PO QHS Scheduled PRN Acetaminophen (Tylenol) 325 Mg Tablet, 650 MG PO QID PRN for PAIN LEVEL 1-4 Allergies Coded Allergies: No Known Allergies (Unverified , 01/30/19) A-FIB/CHADSVASC A-FIB History Current/History of A-Fib/PAF?: No CANDICE LOZOYA MD Jan 06, 2021 17:44
[2021-01-06] MEDS ORDERED: ISOVUE-370 76% 100ML VIAL As Ordered ONE (18:11)
[2021-01-06] MEDS: dexameTHASONE 20MG/5ML VIAL (J1100 PER 1MG) IV SCH (18:15)
[2021-01-06] MEDS ORDERED: PANT40TA29 PO (18:19)
[2021-01-06] MEDS ORDERED: FURO40TA2 PO (18:19)
[2021-01-06] MEDS ORDERED: ASPI-161 PO (18:19)
[2021-01-06] MEDS ORDERED: HOME MED LIST COMPLETE! XX SCH (18:20)
--- NOTE | 2021-01-06 19:53 | REPVR ---
PROCEDURE INFORMATION: Exam: CT Abdomen And Pelvis With Contrast Exam date and time: 01/06/2021 7:08 PM Age: 89 years old Clinical indication: Condition or disease; Other: Eval malignancy TECHNIQUE: Imaging protocol: Computed tomography of the abdomen and pelvis with contrast. Radiation optimization: All CT scans at this facility use at least one of these dose optimization techniques: automated exposure control; mA and/or kV adjustment per patient size (includes targeted exams where dose is matched to clinical indication); or iterative reconstruction. Contrast material: ISOVUE 370; Contrast volume: 100 ml; Contrast route: INTRAVENOUS (IV); COMPARISON: CT ABD/PEL W/IV CONTRAST ONLY 05/07/2019 8:20 AM FINDINGS: Liver: Liver is unremarkable except for focal fatty infiltration anteriorly. Gallbladder and bile ducts: Gallbladder is present and shows no evidence of gallstone. Pancreas: Pancreas appears normal. No focal mass or peripancreatic inflammation. Spleen: Spleen appears homogeneous without focal mass. Adrenal glands: Adrenal glands are normal in appearance. Kidneys and ureters: Kidneys appear normal, with no stone, solid mass or hydronephrosis. Stomach and bowel: Stomach is somewhat under distended, giving it a thick-walled appearance, perhaps more prominent since April 2019. No evidence of small bowel obstruction. Large volume of stool is seen throughout the colon. Diverticular changes are present within the colon without inflammation. Appendix: Appendix is not seen. No RLQ inflammation to suggest appendicitis. Intraperitoneal space: No pneumoperitoneum. Vasculature: Atherosclerotic change present in the aorta, without aneurysm. Main portal and splenic veins enhance normally. Lymph nodes: No enlarged lymph nodes. Urinary bladder: Urinary bladder appears normal. Reproductive: Female reproductive organs appear unremarkable. Bones/joints: Superior endplate insufficiency fracture L1, indeterminate chronicity but new since April 2019. Soft tissues: Lower right thoracic mass will be discussed in the chest CT report. IMPRESSION: 1. Somewhat irregular thick-walled appearance of the gastric body, which could represent infiltrative gastric neoplasm . No obstructive change. Consider upper endoscopy. 2. Colonic diverticulosis without active inflammation. Electronically signed by: Lucien Cesar On 01/06/2021 19:53:17 PM
--- NOTE | 2021-01-06 20:00 | REPVR ---
PROCEDURE INFORMATION: Exam: CT Chest With Contrast; Diagnostic Exam date and time: 01/06/2021 7:08 PM Age: 89 years old Clinical indication: Condition or disease; Other: Eval malignancy TECHNIQUE: Imaging protocol: Diagnostic computed tomography of the chest with contrast. Radiation optimization: All CT scans at this facility use at least one of these dose optimization techniques: automated exposure control; mA and/or kV adjustment per patient size (includes targeted exams where dose is matched to clinical indication); or iterative reconstruction. Contrast material: ISOVUE 370; Contrast volume: 100 ml; Contrast route: INTRAVENOUS (IV); COMPARISON: CT Chest with contrast 12/31/2018 8:02 PM FINDINGS: Lungs: Large heterogeneous 10 x 10 x 15 cm right lower lobe lung mass. Adjacent spiculated 2.2 cm right upper lobe lung mass, and cavitary appearing lesion involving the superior segment left lower lobe, with pathologic involvement of the posterior aspect left 6th rib. Mild emphysematous changes in the lungs. Pleural spaces: No pleural effusion or pneumothorax. . Heart: No overt cardiac enlargement or abnormal volume of pericardial fluid. Aorta: Thoracic aorta is ectatic and atherosclerotic. No focal aneurysm or dissection. Other arteries: Atherosclerotic calcifications in the coronary vessels. Lymph nodes: Enlarged bilateral hilar lymph nodes. Bones/joints: Large old calcified disc extrusion with ossification, L1-L2 and superior endplate depression of L1. Soft tissues: Unremarkable. IMPRESSION: Large bilateral complex lung masses, with measurements given above and cavitary appearance of the superior 7 left lower lobe, with metastatic left 6th ribs involvement, and spiculated left upper lobe mass also consistent with malignancy. Electronically signed by: Lucien Cesar On 01/06/2021 20:00:06 PM
[2021-01-06 23:00] VITALS: BP 142/60
[2021-01-07 04:00] VITALS: BP 108/56
[2021-01-07] MEDS: dexameTHASONE 20MG/5ML VIAL (J1100 PER 1MG) IV SCH ×2 (05:57→17:33)
[2021-01-07 06:03] LABS: HEMATOCRIT 23.5 % (36.0-47.0); HEMOGLOBIN 7.4 g/dl (12.0-15.5); MEAN CORPUSCULAR HEMOGLOBIN 26.8 pg (27.0-33.0); MEAN CORPUSCULAR HGB CONC 31.5 g/dl (32.0-36.5); MEAN CORPUSCULAR VOLUME 85.1 fl (80.0-96.0); PLATELET COUNT, AUTOMATED 624 10^3/uL (150-450); RED BLOOD COUNT 2.76 10^6/uL (4.00-5.40)
[2021-01-07 06:31] LABS: WHITE BLOOD COUNT 30.8 10^3/uL (4.0-10.0)
[2021-01-07 06:32] LABS: ALBUMIN 1.4 GM/DL (3.2-5.2); ALT/SGPT 65 U/L (12-78); BILIRUBIN,TOTAL 0.4 MG/DL (0.2-1.0); BLOOD UREA NITROGEN 36 MG/DL (7-18); CALCIUM LEVEL 6.2 MG/DL (8.8-10.2); CARBON DIOXIDE LEVEL 23 MEQ/L (21-32); CHLORIDE LEVEL 104 MEQ/L (98-107); GLOMERULAR FILTRATION RATE > 60.0 (>32); GLUCOSE, FASTING 95 MG/DL (70-100); POTASSIUM SERUM 4.2 MEQ/L (3.5-5.1); SODIUM LEVEL 139 MEQ/L (136-145)
[2021-01-07 07:16] VITALS: BP 110/76
[2021-01-07] MEDS: PIPERACILLIN/TAZOBACTAM SOD 3.375 GM in D5W MINI-BAG PLUS 50 ML IV SCH ×4 (07:17→20:30)
--- NOTE | 2021-01-07 07:44 | ECGEPIP ---
[facility] - ED Test Date: 2021-01-06 Pat Name: IRA BECKER Department: Room: - Gender: Female Cad Administrator: MIGDALIA : [id number] Requested By: Tamia Vigil Order Number: [id number] Reading MD: Tamia Vigil Measurements Intervals Dema Rate: 95 P: 7 CO: 144 QRS: 5 QRSD: 78 T: 45 QT: 370 QTc: 464 Interpretive Statements Sinus rhythm with premature atrial complexes NSTTW abnormalities ST & T wave abnormality, consider anterior ischemia, more pronounced compared 05/07/19 increased rate 05/07/19 Electronically Signed on 01-07-2021 7:43:47 EDT by Tamia Vigil
--- NOTE | 2021-01-07 08:38 | REP ---
INDICATION: CVA COMPARISON: None. TECHNIQUE: Real-time ultrasound evaluation and duplex Doppler interrogation of the extracranial carotid vasculature is performed. FINDINGS: Antegrade flow is observed in both vertebral arteries. Right carotid: The right common carotid artery shows diffuse intimal thickening but is otherwise unremarkable. There ismild mixed plaquing in the right carotid bulb and proximal ICA on two-dimensional scanning. Color flow and spectral Doppler interrogation are unremarkable on the right. Velocity chart right carotid: Right CCA PSV: 111 cm/S Right ICA PSV: 76 cm/S Right ICA EDV: 14 cm/S Right ECA PSV: 96 cm/S Right ICA/CCA ratio: 0.7 Left carotid: The left common carotid artery shows diffuse intimal thickening but is otherwise unremarkable. There is mild mixed plaquing in the left carotid bulb and proximal ICA on two-dimensional scanning. Color flow and spectral Doppler interrogation are unremarkable on the left. Velocity chart left carotid: Left CCA PSV: 80 cm/S Left ICA PSV: 99 cm/S Left ICA EDV: 23 cm/S Left ECA PSV: 103 cm/S Left ICA/CCA ratio: 1.3 IMPRESSION: Less than 50% category narrowing in the right internal carotid artery by Doppler velocity criteria. Less than 50% category narrowing in the left ICA by Doppler velocity criteria. <Electronically signed by Jude Fatima > 01/07/21 0880
[2021-01-07] MEDS ORDERED: FLUBLOK(EGG FREE)(QUAD)INFLUENZA VACC 0.5ML SYRINGE 18YRS & OLDER IM ONE (09:00)
[2021-01-07] MEDS: FUROSEMIDE 40 MG TAB PO SCH (10:17)
[2021-01-07] MEDS: ASPIRIN 81MG ENTERIC TABLET PO SCH (10:17)
[2021-01-07] MEDS: PANTOPRAZOLE 40MG TAB (PROTONIX) PO SCH (10:19)
[2021-01-07 10:20] LABS: INR 1.31; PROTHROMBIN TIME 16.7 SECONDS (12.7-14.5)
[2021-01-07] MEDS: MAG SULF 1GM/100ML (MAG RUN) 1 GM in IV 1 EA IV SCH ×3 (11:23→15:02)
[2021-01-07] MEDS: levETIRAcetam 250MG TABLET (KEPPRA) PO SCH ×2 (11:25→20:29)
[2021-01-07] MEDS: LEVOTHYROXINE 112MCG TABLET (0.112MG) PO SCH (11:26)
[2021-01-07] MEDS: MAGNESIUM OXIDE 400MG TAB (MAG-OX) PO SCH ×2 (11:26→20:31)
[2021-01-07] MEDS ORDERED: LIDOCAINE 1% MDV 20ML VIAL As Ordered ONE (11:29)
--- NOTE | 2021-01-07 11:32 | IPNPDOC ---
Text Note Date of Service The patient was seen on 01/07/21. NOTE Subjective: Patient seen and examined at bedside. No acute overnight events reported. Patient voices no new medical complaints this morning. Objective: Vital Signs: reviewed and within normal limits General: NAD, lying comfortably in bed HEENT: NC/AT, EOMI, facial droop Neck: supple, no masses Chest: lungs CTA B/L Heart: +S1S2, RRR, no murmurs Abd: soft, NT, ND, +BS Ext: peripheral edema Skin: no rashes MSK: full ROM at large joints Neuro: facial droop Psych: AAOx3 LABORATORY DATA: See below. MICROBIOLOGY: Please see below. A/P: 89 year old female presents for right sided weakness, started 3 days ago, improving. Imaging reveals metastatic disease, lungs, ribs, brain, and sub-acute cortical infarcts. #metastatic disease - unknown primary - pending biopsy - radiation/oncology c/s pending - discussed with oncology - assistance appreciated - outpatient follow up - start Keppra 250 BID - continue decadron 8 BID IV #CVA - neuro c/s pending - telemetry monitoring - PT/OT/ST - already on asa therapy, statin therapy #HTN #HLD #hypothyroidism #DVT prophylaxis - mechanical VS,Fishbone, I+O VS, Fishbone, I+O Laboratory Tests 01/06/21 12:19 01/07/21 05:28 Vital Signs Date Time Temp Pulse Resp B/P (MAP) Pulse Ox O2 Delivery O2 Flow Rate FiO2 01/07/21 07:16 98.1 105 20 110/76 (87) 90 Room Air CANDICE LOZOYA MD Jan 07, 2021 11:32
--- NOTE | 2021-01-07 13:13 | REP ---
INDICATION: POST RIGHT LUNG BIOPSY, 1 VIEW, PA INSPIRATION. COMPARISON: Comparison chest x-ray is from 07 May 2019. TECHNIQUE: PA chest in inspiration. FINDINGS: there is a 17.6 cm mass in the right chest as seen on yesterday's CT study. There is some platelike atelectasis above it in the right upper lobe. There is no evidence of pneumothorax or hydrothorax on the right post biopsy. There is an ill-defined opacity in the left upper lobe. The heart is not enlarged. The aorta is calcific and tortuous. IMPRESSION: No complications seen. Huge mass in the right chest. Ill-defined masslike opacity in the left upper lobe. <Electronically signed by Jude Fatima > 01/07/21 [id number]
[2021-01-07 13:34] VITALS: BP 129/60
[2021-01-07 16:00] VITALS: BP 113/63
--- NOTE | 2021-01-07 17:07 | REP ---
INDICATION: LUNG BIOPSY. COMPARISON: None. TECHNIQUE: The procedure was performed under the direct supervision of Dr. Fatima. The patient has a history of a 10 x 10 x 15 cm right lower lobe lung mass seen on a previous CT scan dated 01/06/2021. The risks and benefits of the procedure were explained to the patient and informed consent was obtained. The right lower lobe lung mass was localized using CT guidance. The skin was prepped and draped in a sterile fashion. 6 mL of 1% lidocaine was used as a local anesthetic. Using CT guidance a 19/20 gauge coaxial needle biopsy system was inserted and advanced into the mass. Five core biopsy samples were obtained and sent to the lab for analysis. The patient tolerated the procedure well and there were no immediate complications. Estimated blood loss: Less than 1 mL. FINDINGS: None IMPRESSION: CT-guided right lower lobe lung biopsy. <Electronically signed by Arsalan Barcenas > 01/07/21 [id number] <Electronically signed by Jude Fatima > 01/07/21 [id number]
[2021-01-07 20:00] VITALS: BP 114/57
[2021-01-07] MEDS: SIMVASTATIN 20 MG TAB PO SCH (20:29)
[2021-01-07] MEDS: LOSARTAN 50MG TABLET PO SCH (20:30)
[2021-01-08] VITALS: BP 109/53
[2021-01-08] MEDS: PIPERACILLIN/TAZOBACTAM SOD 3.375 GM in D5W MINI-BAG PLUS 50 ML IV SCH ×4 (01:11→20:41)
[2021-01-08 04:00] VITALS: BP 119/59
[2021-01-08] MEDS: LEVOTHYROXINE 112MCG TABLET (0.112MG) PO SCH (05:03)
[2021-01-08] MEDS: dexameTHASONE 20MG/5ML VIAL (J1100 PER 1MG) IV SCH ×2 (05:03→18:11)
[2021-01-08 05:17] LABS: HEMATOCRIT 23.6 % (36.0-47.0); HEMOGLOBIN 7.4 g/dl (12.0-15.5); MEAN CORPUSCULAR HEMOGLOBIN 26.5 pg (27.0-33.0); MEAN CORPUSCULAR HGB CONC 31.4 g/dl (32.0-36.5); MEAN CORPUSCULAR VOLUME 84.6 fl (80.0-96.0); PLATELET COUNT, AUTOMATED 646 10^3/uL (150-450); RED BLOOD COUNT 2.79 10^6/uL (4.00-5.40)
[2021-01-08 05:26] LABS: WHITE BLOOD COUNT 32.3 10^3/uL (4.0-10.0)
[2021-01-08 05:38] LABS: BLOOD UREA NITROGEN 37 MG/DL (7-18); CALCIUM LEVEL 6.9 MG/DL (8.8-10.2); CARBON DIOXIDE LEVEL 25 MEQ/L (21-32); CHLORIDE LEVEL 104 MEQ/L (98-107); CREATININE FOR GFR 0.81 MG/DL (0.55-1.30); GLOMERULAR FILTRATION RATE > 60.0 (>32); GLUCOSE, FASTING 131 MG/DL (70-100); POTASSIUM SERUM 3.8 MEQ/L (3.5-5.1); SODIUM LEVEL 140 MEQ/L (136-145)
--- NOTE | 2021-01-08 06:08 | CR ---
CONSULTATION DATE: 01/07/2021 REFERRING PHYSICIAN: CANDICE LOZOYA M.D. REASON FOR CONSULTATION: Weakness, stroke and malignant brain tumor. HISTORY OF PRESENT ILLNESS: The patient is an 89-year-old woman who presented to [facility] with a complaint of right sided weakness, difficulty swallowing which started two or three weeks ago. Her weakness improved and she felt her difficulty swallowing had resolved. She complains of chronic neck and back pain which come and go. She denies seizures, headaches, falls, or loss of consciousness. She came to [facility] at the advice of her friend. DIAGNOSTIC STUDIES: MRI scan of the brain was reviewed and showed a large 3 cm right frontal enhancing mass with vasogenic edema. She also has tiny right parietal acute lacunar strokes. I recommended workup for malignancy. CT scan of the chest, abdomen and pelvis were performed and showed large bilateral lung masses. The right sided mass is 15-[address] of the abdomen showed thick walled gastric body, concern for infiltrative neoplastic process. Carotid ultrasound showed less than 50% carotid artery stenosis. MRA of brain was unremarkable. Blood WBCs were 30.8, platelet count was 624,000, hemoglobin 7.4, normal metabolic profile. AST was 61. Her flu, COVID and RSV testing were unremarkable. PAST MEDICAL HISTORY: Hypertension, hypothyroidism, dyslipidemia, peripheral neuropathy. SOCIAL HISTORY: She has a 30 pack year smoking history and cut it down to a few cigarettes a day. FAMILY HISTORY: Father of natural causes. Mother had Alzheimer's dementia. REVIEW OF SYSTEMS: All systems were reviewed and were found to be noncontributory except as mentioned in the history of present illness. ALLERGIES: None. HOME MEDICATIONS: 1. Aspirin 81 mg p.o. daily. 2. Hydrochlorothiazide 12.5 mg p.o. daily. 3. Levothyroxine 112 mcg p.o. daily. 4. Losartan 50 mg p.o. daily. 5. Magnesium oxide 250 mg p.o. b.i.d. 6. Omeprazole 20 mg p.o. daily. 7. Simvastatin 20 mg p.o. daily. PHYSICAL EXAMINATION: Temperature is 97.7, pulse is 72, respiratory rate is 18, blood pressure is 110/76. Heart: Regular rate and rhythm. Lungs are clear to auscultation. Abdomen is soft, nontender and nondistended. No pedal edema. No musculoskeletal abnormalities. No rash. No signs of meningeal irritation. Patient is drowsy but arousable. She has normal speech, comprehension and repetition. Extraocular muscles are intact. She has subtle left sided upper motor neuron right facial weakness affecting the left lower face. Strength is 5/5 in all four extremities. Deep tendon reflexes are 2+ throughout. Normal sensation throughout. Gait was not tested. She has no dysmetria. ASSESSMENT: 1. 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 2. Gastric infiltrative neoplastic process. 3. Tiny right parietal acute lacunar ischemic strokes although the concerns remains for microscopic metastasis. 4. Less than 50% bilateral carotid artery stenosis. PLAN: 1. Biopsy of lung mass. 2. Decadron 8 mg IV b.i.d. for three days and it can be changed to 4 mg p.o. b.i.d. orally. 3. Start Keppra 250 mg b.i.d. and increase to 500 mg b.i.d. and further if needed in the future. This is to prevent seizures from right frontal metastatic tumor. 4. Consult with Radiation Oncology. 5. Follow with our office in 1-2 weeks after hospital discharge.
[2021-01-08 06:43] LABS: MAGNESIUM LEVEL 1.6 MG/DL (1.8-2.4)
[2021-01-08 08:00] VITALS: BP 122/82
[2021-01-08] MEDS ORDERED: MAG SULF 1GM/100ML (MAG RUN) 1 GM in IV 1 EA IV ONE (08:00)
[2021-01-08] MEDS: MAGNESIUM OXIDE 400MG TAB (MAG-OX) PO SCH ×2 (09:04→20:42)
[2021-01-08] MEDS: levETIRAcetam 250MG TABLET (KEPPRA) PO SCH ×2 (09:04→20:42)
[2021-01-08] MEDS: PANTOPRAZOLE 40MG TAB (PROTONIX) PO SCH (09:04)
[2021-01-08] MEDS: ASPIRIN 81MG ENTERIC TABLET PO SCH (09:04)
[2021-01-08] MEDS: FUROSEMIDE 40 MG TAB PO SCH (09:04)
[2021-01-08 12:00] VITALS: BP 112/65
--- NOTE | 2021-01-08 12:22 | IPNPDOC ---
Text Note Date of Service The patient was seen on 01/08/21. NOTE Subjective: Patient seen and examined at bedside. No acute overnight events reported. Patient voices no new medical complaints this morning. She states she is not interested in pursing treatment for her cancer. Objective: Vital Signs: reviewed General: NAD, lying comfortably in bed HEENT: NC/AT, EOMI, facial droop Neck: supple, no masses Chest: lungs CTA B/L Heart: +S1S2, RRR, no murmurs Abd: soft, NT, ND, +BS Ext: peripheral edema Skin: no rashes MSK: full ROM at large joints Neuro: facial droop Psych: AAOx3 LABORATORY DATA: See below. MICROBIOLOGY: Please see below. A/P: 89 year old female presents for right sided weakness, started 3 days ago, improving. Imaging reveals metastatic disease, lungs, ribs, brain, and sub-acute cortical infarcts. #metastatic disease - pending biopsy results - radiation/oncology c/s appreciated - discussed with oncology - assistance appreciated - outpatient follow up - start Keppra 250 BID - transition to 500 BID tomorrow - continue decadron 8 BID IV - transition to 4 BID PO tomorrow #CVA - neuro c/s appreciated - PT/OT/ST - already on asa therapy, statin therapy #leukocytosis - likely reactive secondary to underlying malignancy - no obvious source of infection #HTN #HLD #hypothyroidism #DVT prophylaxis - mechanical Dispo: transfer to med/surg; extensive discussion with her daughter Mirtha Cardona [phone]; will need rehab, anticipating discharge to ARU on Monday, no beds available today VS,Kamilla, I+O VS, Kamilla, I+O Laboratory Tests 01/08/21 04:57 Vital Signs Date Time Temp Pulse Resp B/P (MAP) Pulse Ox O2 Delivery O2 Flow Rate FiO2 01/08/21 08:00 97.2 82 20 122/82 (95) 95 Room Air I&O- Last 24 Hours up to 6 AM 01/08/21 06:00 Intake Total 1350 ml Output Total 400 ml Balance 950 ml CANDICE LOZOYA MD Jan 08, 2021 12:22
[2021-01-08 16:00] VITALS: BP 116/91
[2021-01-08 20:00] VITALS: BP 126/54
[2021-01-08] MEDS: SIMVASTATIN 20 MG TAB PO SCH (20:42)
[2021-01-08] MEDS: LOSARTAN 50MG TABLET PO SCH (20:42)
[2021-01-09] MEDS: PIPERACILLIN/TAZOBACTAM SOD 3.375 GM in D5W MINI-BAG PLUS 50 ML IV SCH ×4 (01:14→20:12)
[2021-01-09] MEDS: ACETAMINOPHEN 325 MG TAB PO PRN (01:14)
[2021-01-09 04:00] VITALS: BP 113/59
[2021-01-09] MEDS: dexameTHASONE 20MG/5ML VIAL (J1100 PER 1MG) IV SCH ×2 (05:31→17:15)
[2021-01-09] MEDS: LEVOTHYROXINE 112MCG TABLET (0.112MG) PO SCH (05:31)
[2021-01-09 06:18] LABS: HEMATOCRIT 24.1 % (36.0-47.0); HEMOGLOBIN 7.6 g/dl (12.0-15.5); MEAN CORPUSCULAR HGB CONC 31.5 g/dl (32.0-36.5); MEAN CORPUSCULAR VOLUME 85.5 fl (80.0-96.0); PLATELET COUNT, AUTOMATED 659 10^3/uL (150-450); RED BLOOD COUNT 2.82 10^6/uL (4.00-5.40); WHITE BLOOD COUNT 29.5 10^3/uL (4.0-10.0)
[2021-01-09 06:40] LABS: BLOOD UREA NITROGEN 44 MG/DL (7-18); CALCIUM LEVEL 8.1 MG/DL (8.8-10.2); CARBON DIOXIDE LEVEL 25 MEQ/L (21-32); CHLORIDE LEVEL 104 MEQ/L (98-107); CREATININE FOR GFR 0.88 MG/DL (0.55-1.30); GLOMERULAR FILTRATION RATE > 60.0 (>32); GLUCOSE, FASTING 105 MG/DL (70-100); MAGNESIUM LEVEL 1.8 MG/DL (1.8-2.4); POTASSIUM SERUM 4.3 MEQ/L (3.5-5.1); SODIUM LEVEL 139 MEQ/L (136-145)
[2021-01-09 07:40] VITALS: BP 124/56
[2021-01-09] MEDS: FUROSEMIDE 40 MG TAB PO SCH (08:33)
[2021-01-09] MEDS: levETIRAcetam 250MG TABLET (KEPPRA) PO SCH ×2 (08:34→20:14)
[2021-01-09] MEDS: MAGNESIUM OXIDE 400MG TAB (MAG-OX) PO SCH ×2 (08:34→20:14)
[2021-01-09] MEDS: PANTOPRAZOLE 40MG TAB (PROTONIX) PO SCH (08:34)
[2021-01-09] MEDS: ASPIRIN 81MG ENTERIC TABLET PO SCH (08:34)
--- NOTE | 2021-01-09 09:31 | IPNPDOC ---
Text Note Date of Service The patient was seen on 01/09/21. NOTE Subjective: Patient seen and examined at bedside. No acute overnight events reported. Patient voices no new medical complaints this morning. Objective: Vital Signs: reviewed General: NAD, sitting comfortably in chair HEENT: NC/AT, EOMI, facial droop Neck: supple, no masses Chest: lungs CTA B/L Heart: +S1S2, RRR, no murmurs Abd: soft, NT, ND, +BS Ext: peripheral edema Skin: no rashes MSK: full ROM at large joints Neuro: facial droop Psych: AAOx3 LABORATORY DATA: See below. MICROBIOLOGY: Please see below. A/P: 89 year old female presents for right sided weakness, started 3 days ago, improving. Imaging reveals metastatic disease, lungs, ribs, brain, and sub-acute cortical infarcts. #Metastatic disease - pending biopsy results -discussed with the pathology, small cell cancer, primary still unknown - radiation/oncology c/s appreciated -first treatment scheduled for Monday - discussed with oncology - assistance appreciated - outpatient follow up -Keppra 500 BID -decadron 8 BID IV - transition to 4 BID PO tomorrow #CVA - neuro c/s appreciated - PT/OT/ST - already on asa therapy, statin therapy #leukocytosis -Improving - likely reactive secondary to underlying malignancy - no obvious source of infection #HTN - continue losartan #HLD - continue zocor #hypothyroidism - continue synthroid #DVT prophylaxis - mechanical Dispo: transfer to med/surg; extensive discussion with her daughter Elisa ([phone]) and Mirtha Cardona [phone]; will need rehab, anticipating discharge to ARU when bed available. VS,Fishbone, I+O VS, Fishbone, I+O Laboratory Tests 01/09/21 05:41 Vital Signs Date Time Temp Pulse Resp B/P (MAP) Pulse Ox O2 Delivery O2 Flow Rate FiO2 01/09/21 07:40 97.0 81 20 124/56 (78) 95 01/08/21 08:00 Room Air I&O- Last 24 Hours up to 6 AM 01/09/21 06:00 Intake Total 680 ml Output Total 200 ml Balance 480 ml CANDICE LOZOYA MD Jan 09, 2021 09:31
[2021-01-09 11:21] VITALS: BP 113/57
[2021-01-09] MEDS: NICOTINE 7 MG/24 HR TRANSDERMAL TD SCH (14:00)
[2021-01-09 15:53] VITALS: BP 121/58
[2021-01-09 20:00] VITALS: BP 127/57
[2021-01-09] MEDS: LOSARTAN 50MG TABLET PO SCH (20:14)
[2021-01-09] MEDS: SIMVASTATIN 20 MG TAB PO SCH (20:15)
[2021-01-10] MEDS: PIPERACILLIN/TAZOBACTAM SOD 3.375 GM in D5W MINI-BAG PLUS 50 ML IV SCH ×4 (02:02→20:33)
[2021-01-10 04:00] VITALS: BP 132/60
[2021-01-10 04:29] LABS: HEMATOCRIT 24.3 % (36.0-47.0); HEMOGLOBIN 7.6 g/dl (12.0-15.5); MEAN CORPUSCULAR HEMOGLOBIN 27.3 pg (27.0-33.0); MEAN CORPUSCULAR HGB CONC 31.3 g/dl (32.0-36.5); MEAN CORPUSCULAR VOLUME 87.4 fl (80.0-96.0); PLATELET COUNT, AUTOMATED 682 10^3/uL (150-450); RED BLOOD COUNT 2.78 10^6/uL (4.00-5.40)
[2021-01-10 04:34] LABS: WHITE BLOOD COUNT 32.3 10^3/uL (4.0-10.0)
[2021-01-10 04:46] LABS: BLOOD UREA NITROGEN 44 MG/DL (7-18); CALCIUM LEVEL 8.8 MG/DL (8.8-10.2); CARBON DIOXIDE LEVEL 28 MEQ/L (21-32); CHLORIDE LEVEL 105 MEQ/L (98-107); CREATININE FOR GFR 0.87 MG/DL (0.55-1.30); GLOMERULAR FILTRATION RATE > 60.0 (>32); GLUCOSE, FASTING 139 MG/DL (70-100); POTASSIUM SERUM 4.1 MEQ/L (3.5-5.1); SODIUM LEVEL 140 MEQ/L (136-145)
[2021-01-10] MEDS: LEVOTHYROXINE 112MCG TABLET (0.112MG) PO SCH (06:46)
[2021-01-10 07:34] LABS: MAGNESIUM LEVEL 1.9 MG/DL (1.8-2.4)
--- NOTE | 2021-01-10 08:12 | IPNPDOC ---
Text Note Date of Service The patient was seen on 01/10/21. NOTE Subjective: Patient seen and examined at bedside. No acute overnight events reported. Patient voices no new medical complaints this morning. Objective: Vital Signs: reviewed General: NAD, sitting comfortably in chair HEENT: NC/AT, EOMI, facial droop Neck: supple, no masses Chest: lungs CTA B/L Heart: +S1S2, RRR, no murmurs Abd: soft, NT, ND, +BS Ext: peripheral edema Skin: no rashes MSK: full ROM at large joints Neuro: facial droop Psych: AAOx3 LABORATORY DATA: See below. MICROBIOLOGY: Please see below. A/P: 89 year old female presents for right sided weakness, started 3 days prior to presentation to ED, and was improving. Imaging reveals metastatic disease, l ungs, ribs, brain, and sub-acute cortical infarcts. #Metastatic disease - pending biopsy results -discussed with the pathology, small cell cancer, primary still unknown - radiation/oncology c/s appreciated -first treatment scheduled for Monday - discussed with oncology - assistance appreciated - outpatient follow up -Keppra 500 BID -decadron transitioned to 4 BID PO #CVA - neuro c/s appreciated - PT/OT/ST - already on asa therapy, statin therapy #leukocytosis -Improving - likely reactive secondary to underlying malignancy - no obvious source of infection #HTN - continue losartan #HLD - continue zocor #hypothyroidism - continue synthroid #DVT prophylaxis - mechanical Dispo: transfer to med/surg; extensive discussion regarding code status with patient and family; extensive discussion with her daughter Elisa ([phone]) and Mirtha Cardona ([phone]); will need rehab, anticipating discharge to ARU when bed available, possibly home with 24/7 care? patient wishes to go home. RT planned for tomorrow VS,Fishbone, I+O VS, Fishbone, I+O Laboratory Tests 01/10/21 04:10 Vital Signs Date Time Temp Pulse Resp B/P (MAP) Pulse Ox O2 Delivery O2 Flow Rate FiO2 01/10/21 04:00 97.6 100 20 132/60 (84) 93 Room Air I&O- Last 24 Hours up to 6 AM 01/10/21 06:00 Intake Total 1055 ml Output Total 950 ml Balance 105 ml CANDICE LOZOYA MD Jan 10, 2021 08:12
[2021-01-10 08:13] VITALS: BP 148/64
[2021-01-10] MEDS: ASPIRIN 81MG ENTERIC TABLET PO SCH (09:41)
[2021-01-10] MEDS: levETIRAcetam 250MG TABLET (KEPPRA) PO SCH ×2 (09:45→20:33)
[2021-01-10] MEDS: PANTOPRAZOLE 40MG TAB (PROTONIX) PO SCH (09:45)
[2021-01-10] MEDS: NICOTINE 7 MG/24 HR TRANSDERMAL TD SCH (09:46)
[2021-01-10] MEDS: MAGNESIUM OXIDE 400MG TAB (MAG-OX) PO SCH ×2 (09:46→20:34)
[2021-01-10] MEDS: FUROSEMIDE 40 MG TAB PO SCH (09:47)
[2021-01-10 12:00] VITALS: BP 140/66
[2021-01-10 16:00] VITALS: BP 137/63
[2021-01-10 20:00] VITALS: BP 147/67
[2021-01-10] MEDS: LOSARTAN 50MG TABLET PO SCH (20:34)
[2021-01-10] MEDS: SIMVASTATIN 20 MG TAB PO SCH (20:34)
[2021-01-11] VITALS: BP 146/70
[2021-01-11] MEDS: PIPERACILLIN/TAZOBACTAM SOD 3.375 GM in D5W MINI-BAG PLUS 50 ML IV SCH ×4 (01:33→21:04)
[2021-01-11 04:00] VITALS: BP 130/60
[2021-01-11 05:22] LABS: HEMATOCRIT 25.5 % (36.0-47.0); HEMOGLOBIN 7.8 g/dl (12.0-15.5); MEAN CORPUSCULAR HEMOGLOBIN 26.9 pg (27.0-33.0); MEAN CORPUSCULAR HGB CONC 30.6 g/dl (32.0-36.5); MEAN CORPUSCULAR VOLUME 87.9 fl (80.0-96.0); PLATELET COUNT, AUTOMATED 693 10^3/uL (150-450)
[2021-01-11 05:33] LABS: WHITE BLOOD COUNT 33.1 10^3/uL (4.0-10.0)
[2021-01-11 05:43] LABS: BLOOD UREA NITROGEN 38 MG/DL (7-18); CALCIUM LEVEL 9.9 MG/DL (8.8-10.2); CARBON DIOXIDE LEVEL 30 MEQ/L (21-32); CHLORIDE LEVEL 102 MEQ/L (98-107); CREATININE FOR GFR 0.74 MG/DL (0.55-1.30); GLOMERULAR FILTRATION RATE > 60.0 (>32); GLUCOSE, FASTING 119 MG/DL (70-100); MAGNESIUM LEVEL 1.6 MG/DL (1.8-2.4); POTASSIUM SERUM 4.7 MEQ/L (3.5-5.1); SODIUM LEVEL 139 MEQ/L (136-145)
[2021-01-11] MEDS: LEVOTHYROXINE 112MCG TABLET (0.112MG) PO SCH (06:14)
[2021-01-11 08:00] VITALS: BP 146/68
[2021-01-11] MEDS ORDERED: MAG SULF 1GM/100ML (MAG RUN) 1 GM in IV 1 EA IV ONE (08:00)
[2021-01-11] MEDS: NICOTINE 7 MG/24 HR TRANSDERMAL TD SCH (08:41)
[2021-01-11] MEDS: levETIRAcetam 250MG TABLET (KEPPRA) PO SCH ×2 (08:42→21:01)
[2021-01-11] MEDS: MAGNESIUM OXIDE 400MG TAB (MAG-OX) PO SCH ×2 (08:43→21:02)
[2021-01-11] MEDS: FUROSEMIDE 40 MG TAB PO SCH (08:43)
[2021-01-11] MEDS: ASPIRIN 81MG ENTERIC TABLET PO SCH (08:44)
[2021-01-11] MEDS: ACETAMINOPHEN 325 MG TAB PO PRN ×2 (08:44→21:02)
[2021-01-11] MEDS: PANTOPRAZOLE 40MG TAB (PROTONIX) PO SCH (08:45)
--- NOTE | 2021-01-11 08:49 | IPNPDOC ---
Text Note Date of Service The patient was seen on 01/11/21. NOTE Subjective: Patient seen and examined at bedside. No acute overnight events reported. Patient voices no new medical complaints this morning. She states she would like to go to [place] skilled nursing. She is anxious to be discharged. Objective: Vital Signs: reviewed General: NAD, sitting comfortably in chair HEENT: NC/AT, EOMI Neck: supple, no masses Chest: lungs CTA B/L Heart: +S1S2, RRR, no murmurs Abd: soft, NT, ND, +BS Ext: peripheral edema Skin: no rashes MSK: full ROM at large joints Neuro: facial droop Psych: AAOx3 LABORATORY DATA: See below. MICROBIOLOGY: Please see below. A/P: 89 year old female presents for right sided weakness, started 3 days prior to pr esentation to ED, and was improving. Imaging reveals metastatic disease, lungs, ribs, brain, and sub-acute cortical infarcts. 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, still with primary unknown - radiation/oncology c/s appreciated -first treatment scheduled for today - discussed with oncology - assistance appreciated - outpatient follow up -Keppra 500 BID -decadron transitioned to 4 BID PO #CVA - neuro c/s appreciated - PT/OT/ST - already on asa therapy, statin therapy #leukocytosis - likely reactive secondary to underlying malignancy - no obvious source of infection, mrsa screen negative - completed 5 days zosyn, will d/c today #HTN - continue losartan #hypomagnesemia - continue to follow and replete as needed #HLD - continue zocor #hypothyroidism - continue synthroid #DVT prophylaxis - mechanical Dispo: transfer to med/surg; extensive discussion again today regarding code status with patient - still undecided, so remains FULL CODE; extensive discussion with her daughter Elisa ([phone]) and Mirtha Romney ([phone]); will need rehab, anticipating discharge to ARU when bed availab le, possibly home with 24/7 care? patient wishes to go home. RT planned for today VS,Fishbone, I+O VS, Fishbone, I+O Laboratory Tests 01/11/21 04:54 Vital Signs Date Time Temp Pulse Resp B/P (MAP) Pulse Ox O2 Delivery O2 Flow Rate FiO2 01/11/21 08:00 97.7 89 20 146/68 (94) 90 Room Air I&O- Last 24 Hours up to 6 AM 01/11/21 06:00 Intake Total 925 ml Output Total 700 ml Balance 225 ml CANDICE LOZOYA MD Jan 11, 2021 08:49
--- NOTE | 2021-01-11 10:08 | ECHO ---
ECHOCARDIOGRAM DATE OF PROCEDURE: 01/07/2021 Age: 89 Gender: M Height: Weight: REFERRING PHYSICIAN: Jules Pagan MD PATIENT LOCATION: Room 3217 REASON FOR STUDY: Cerebrovascular accident (CVA) MEASUREMENTS: 2D MEASUREMENTS: IVS 1.1 cm LV 3.4 cm LVPW 1.1 cm LA 3.1 cm Aorta 3.1 cm DOPPLER MEASURMENTS: Mitral E 0.86, mitral A 1.2 with a ratio of 0.7 Maximum tricuspid valve velocity 2.7 m/s 2D COMMENTS: 1. Normal left ventricle size, wall thickness, and normal global left ventricular systolic function. The estimated left ventricular systolic ejection fraction is 60% to 65%. 2. The left atrium appeared to be mildly enlarged. Normal right atrium and left ventricle. 3. The atrial septum appeared to be normal without evidence of defect or shunt. 4. Normal aortic root. 5. No pericardial effusion seen. 6. Minimally calcified aortic valve with normal leaflet excursion. Mildly calcified mitral annulus with normal anterior mitral valve leaflet motion. Normal tricuspid valve. The pulmonic valve and proximal pulmonary artery branches were not well visualized. 7. The inferior vena cava was not well visualized. DOPPLER: It detects mild tricuspid regurgitation, mild to moderate mitral regurgitation. The calculated pulmonary artery systolic pressure varies between 30-40 mmHg. Abnormal relaxation pattern was noted across the mitral valve leaflets as well as the mitral valve annulus consistent with features of grade 1 left ventricular diastolic dysfunction. IMPRESSION: 1. Normal global left ventricular systolic function. There are some features of grade 1 left ventricular diastolic dysfunction manifested by abnormal relaxation. 2. Mild to moderate mitral regurgitation. Subjectively the left atrium appeared to be mildly enlarged. 3. Mild tricuspid regurgitation with mild pulmonary hypertension. 4. The bubble study was not done, patient had refused as reported by the telecommunications field technician.
--- NOTE | 2021-01-11 10:56 | RADENCPD ---
Date/Time of Encounter Date of Encounter: Jan 11, 2021 Time of Encounter: 10:51 Encounter Met with patient this AM, discussed overall burden of SCLC portends a very poor prognosis, given current low PS, she would not be eligible for chemotherapy. I estimate weeks-months without treatment. She would be eligible for hospice. Discussed that for SCLC first line treatment is chemotherapy. We discussed the side effects of RT and chemotherapy. She did say to me that she would refuse chemotherapy even if she was eligible. I discussed WBRT as a means to exert some intracranial control, which may, or may not improve QOL and extend life. She would like to proceed with this (her planning session on 01/08/21 was cancelled, unclear why, patient denies refusing to come down). In any event, we will proceed with RT planning this afternoon and start WBRT tomorrow, treatment will be 20 Gy in 5 fractions. These may be delivered as an inpatient or outpatient. I would then recommend that she proceed to hospice, barring a miraculous improvement in PS. WOODROW CHUA MD Jan 11, 2021 10:56
[2021-01-11] MEDS ORDERED: MOM 30ML SUSPENSION UDC PO PRN (11:20)
[2021-01-11] MEDS ORDERED: MIRALAX *UNIT DOSE* 17GM PACKET PO PRN (11:20)
[2021-01-11 17:00] VITALS: BP 134/77
[2021-01-11] MEDS: SIMVASTATIN 20 MG TAB PO SCH (21:02)
[2021-01-11] MEDS: LOSARTAN 50MG TABLET PO SCH (21:03)
[2021-01-11 21:55] VITALS: BP 125/77
[2021-01-12] VITALS (9 sets, daily range): BP systolic 100–135; BP diastolic 50–85
[2021-01-12] MEDS: LEVOTHYROXINE 112MCG TABLET (0.112MG) PO SCH (05:32)
[2021-01-12] MEDS: ACETAMINOPHEN 325 MG TAB PO PRN ×2 (05:33→20:54)
[2021-01-12 06:26] LABS: HEMATOCRIT 22.5 % (36.0-47.0); MEAN CORPUSCULAR HEMOGLOBIN 27.1 pg (27.0-33.0); MEAN CORPUSCULAR HGB CONC 30.7 g/dl (32.0-36.5); MEAN CORPUSCULAR VOLUME 88.2 fl (80.0-96.0); PLATELET COUNT, AUTOMATED 674 10^3/uL (150-450); RED BLOOD COUNT 2.55 10^6/uL (4.00-5.40)
[2021-01-12 06:38] LABS: HEMOGLOBIN 6.9 g/dl (12.0-15.5)
[2021-01-12 06:39] LABS: WHITE BLOOD COUNT 36.9 10^3/uL (4.0-10.0)
[2021-01-12 06:53] LABS: BLOOD UREA NITROGEN 46 MG/DL (7-18); CARBON DIOXIDE LEVEL 27 MEQ/L (21-32); CHLORIDE LEVEL 103 MEQ/L (98-107); CREATININE FOR GFR 0.59 MG/DL (0.55-1.30); GLOMERULAR FILTRATION RATE > 60.0 (>32); GLUCOSE, FASTING 135 MG/DL (70-100); MAGNESIUM LEVEL 2.1 MG/DL (1.8-2.4); POTASSIUM SERUM 4.9 MEQ/L (3.5-5.1); SODIUM LEVEL 138 MEQ/L (136-145)
--- NOTE | 2021-01-12 08:40 | RADENCPD ---
Date/Time of Encounter Date of Encounter: Jan 12, 2021 Time of Encounter: 08:[address] 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 Given the unclear clinical significance of the neuroendocrine differentiation, and the overall high burden of chest disease and brain metastasis at diagnosis, which is suggestive of SCLC-like natural history, I favor proceeding with the plan for WBRT. SRS can be reserved for salvage if needed. I will discuss the pathology with the patient today when she comes for treatment. I will also offer namenda as an adjuvant to mitigate the risk of neurocognitive sequelae. I have asked that the speciment be sent for molecular markers, which may open up systemic therapy opportunities to [place] which she would be willing to consid er (she voiced a preference to avoid conventional chemotherapy to me yesterday). WOODROW CHUA MD Jan 12, 2021 08:40
[2021-01-12] MEDS: PERCOCET 5MG/325MG TAB PO PRN (08:58)
[2021-01-12] MEDS: levETIRAcetam 250MG TABLET (KEPPRA) PO SCH ×2 (09:07→20:54)
[2021-01-12] MEDS: ASPIRIN 81MG ENTERIC TABLET PO SCH (09:07)
[2021-01-12] MEDS: MAGNESIUM OXIDE 400MG TAB (MAG-OX) PO SCH ×2 (09:07→20:54)
[2021-01-12] MEDS: PANTOPRAZOLE 40MG TAB (PROTONIX) PO SCH (09:07)
[2021-01-12] MEDS: FUROSEMIDE 40 MG TAB PO SCH (09:08)
[2021-01-12] MEDS: NICOTINE 7 MG/24 HR TRANSDERMAL TD SCH (09:08)
[2021-01-12] MEDS ORDERED: NS 1,000 ML IV SCH (09:40)
[2021-01-12 10:26] LABS: INR 1.14
[2021-01-12 10:27] LABS: PARTIAL THROMBOPLASTIN TIME 36.6 SECONDS (25.9-37.0)
[2021-01-12 10:55] LABS: PERCENT SATURATION 15.8 % (13.2-45.0)
[2021-01-12] MEDS ORDERED: oxyCODONE 5MG TAB PO PRN (12:00)
[2021-01-12] MEDS: KETOROLAC 30 MG/ML 1ML VIAL IV PRN (14:49)
--- NOTE | 2021-01-12 20:21 | IPNPDOC ---
Subjective Date Seen The patient was seen on 01/12/21. Subjective Chief Complaint/HPI Mrs. 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 This morning, she denied any chest pain or shortness of breath. She still had low back pain. Her hemoglobin was low at 6.9. We discussed blood transfusion and she is agreeable. Patient will get 2 units of blood today. Otherwise I escalated her pain medication to include Percocet and ketorolac Objective Physical Examination General Exam: Positive: Cooperative Eye Exam: Negative: Sclera icteric ENT Exam: Positive: Atraumatic Neck Exam: Positive: Supple Chest Exam: Positive: Clear to auscultation Heart Exam: Positive: Rate Normal, Regular Rhythm Abdomen Exam: Positive: Normal bowel sounds, Soft; Negative: Tenderness Extremity Exam: Positive: Edema Assessment /Plan Assessment Mrs. 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 Patient was approved for ARU. Pending bed availability. Otherwise patient demonstrated acute anemia today. This may have made her back pain worse. Receiving 2 units of blood. Reticulocyte index was 0.67 suggesting hypoproliferation. Iron was low but ferritin was elevated which may suggest anemia of chronic disease. Pending occult stool. Plan/VTE VTE Prophylaxis Ordered?: Yes Plan 1. Metastatic disease to the lungs, ribs, and brain Biopsy results demonstrated small cell cancer, neuroendocrine origin, primary unknown Radiation/oncology consulted and recommendations appreciated. Patient had first treatment on 01/11/2021 Patient will need to follow-up with oncology outpatient Continue with Keppra 500 twice daily and Decadron 4 mg twice daily 2. CVA MRI brain demonstrated 2 tiny probable acute/subacute cortical infarcts in the right parietal convexity MRA brain negative Ultrasound carotids negative Echocardiogram demonstrates EF of 60 to 65% and grade 1 diastolic dysfunction. Patient refused bubble study Continue aspirin and Zocor 3. Acute anemia Hemoglobin had dropped to 6.9 from 7.8. Patient be transfused 2 units of blood Reticulocyte index was 0.67 suggestive of hypoproliferation Iron studies suggest anemia of chronic disease Pending occult stool 4. Leukocytosis Patient afebrile and blood cultures negative to date. UA negative Unlikely infectious source May be reactive to steroids versus cancer Monitor 5. Hypothyroidism Continue levothyroxine 6. Hypertension Continue losartan 7. Hyperlipidemia Continue Zocor 8. DVT prophylaxis SCDs and teds Disposition: Approved for ARU. Pending bed availability. Pending improvement and stability of hemoglobin VS, I&O, 24H, Fishbone Vital Signs/I&O Vital Signs Date Time Temp Pulse Resp B/P (MAP) Pulse Ox O2 Delivery O2 Flow Rate FiO2 01/12/21 19:31 97.9 63 16 122/61 96 Room Air I&O- Last 24 Hours up to 6 AM 01/12/21 06:00 Intake Total 600 ml Output Total 1700 ml Balance -1100 ml Laboratory Data 24H LABS Laboratory Tests 2 01/12/21 05:54: Reticulocyte # (auto) 63.0, Nucleated Red Blood Cells % (auto) 0.1H, Percent Reticulocyte Count 2.5H, Reticulocyte Hemoglobin Equivalent 33.9, Anion Gap 8, Glomerular Filtration Rate > 60.0, Calcium Level 9.0, Magnesium Level 2.1 01/12/21 09:55: Prothrombin Time 15.0H, Prothromb Time International Ratio 1.14, Activated Pa rtial Thromboplast Time 36.6, Iron Level 32L, Total Iron Binding Capacity 203L, Transferrin % Saturation 15.8, Ferritin 1671H, Lactate Dehydrogenase 249H CBC/BMP Laboratory Tests 01/12/21 05:54 Microbiology Microbiology 01/08/21 Blood Culture - Preliminary, Resulted No Growth after 72 hours. All specime... 01/08/21 Blood Culture - Preliminary, Resulted No Growth after 72 hours. All specime... AD COLBY DO Jan 12, 2021 20:21
[2021-01-12] MEDS: LOSARTAN 50MG TABLET PO SCH (20:53)
[2021-01-12] MEDS: SIMVASTATIN 20 MG TAB PO SCH (20:54)
[2021-01-12 23:16] LABS: HEMATOCRIT 29.2 % (36.0-47.0); HEMOGLOBIN 9.2 g/dl (12.0-15.5); MEAN CORPUSCULAR HGB CONC 31.5 g/dl (32.0-36.5); MEAN CORPUSCULAR VOLUME 88.8 fl (80.0-96.0); PLATELET COUNT, AUTOMATED 554 10^3/uL (150-450); RED BLOOD COUNT 3.29 10^6/uL (4.00-5.40)
[2021-01-12 23:17] LABS: WHITE BLOOD COUNT 35.6 10^3/uL (4.0-10.0)
[2021-01-13] MEDS: KETOROLAC 30 MG/ML 1ML VIAL IV PRN (02:31)
[2021-01-13] MEDS: PERCOCET 5MG/325MG TAB PO PRN ×2 (03:52→20:50)
[2021-01-13] MEDS: LEVOTHYROXINE 112MCG TABLET (0.112MG) PO SCH (05:48)
[2021-01-13 06:00] VITALS: BP 123/66
[2021-01-13 08:36] LABS: HEMATOCRIT 29.3 % (36.0-47.0); HEMOGLOBIN 9.4 g/dl (12.0-15.5); MEAN CORPUSCULAR HEMOGLOBIN 28.3 pg (27.0-33.0); MEAN CORPUSCULAR HGB CONC 32.1 g/dl (32.0-36.5); MEAN CORPUSCULAR VOLUME 88.3 fl (80.0-96.0); PLATELET COUNT, AUTOMATED 588 10^3/uL (150-450); RED BLOOD COUNT 3.32 10^6/uL (4.00-5.40)
[2021-01-13 08:57] LABS: BLOOD UREA NITROGEN 53 MG/DL (7-18); CALCIUM LEVEL 9.4 MG/DL (8.8-10.2); CARBON DIOXIDE LEVEL 30 MEQ/L (21-32); CHLORIDE LEVEL 106 MEQ/L (98-107); CREATININE FOR GFR 0.67 MG/DL (0.55-1.30); GLOMERULAR FILTRATION RATE > 60.0 (>32); GLUCOSE, FASTING 114 MG/DL (70-100); POTASSIUM SERUM 5.1 MEQ/L (3.5-5.1); SODIUM LEVEL 139 MEQ/L (136-145)
[2021-01-13 09:09] LABS: WHITE BLOOD COUNT 36.8 10^3/uL (4.0-10.0)
[2021-01-13] MEDS: levETIRAcetam 250MG TABLET (KEPPRA) PO SCH ×2 (10:01→20:49)
[2021-01-13] MEDS: ASPIRIN 81MG ENTERIC TABLET PO SCH (10:01)
[2021-01-13] MEDS: PANTOPRAZOLE 40MG TAB (PROTONIX) PO SCH (10:02)
[2021-01-13] MEDS: MAGNESIUM OXIDE 400MG TAB (MAG-OX) PO SCH ×2 (10:02→20:49)
[2021-01-13] MEDS: NICOTINE 7 MG/24 HR TRANSDERMAL TD SCH (10:02)
[2021-01-13] MEDS: FUROSEMIDE 40 MG TAB PO SCH (10:02)
[2021-01-13 14:00] VITALS: BP 143/65
[2021-01-13 14:03] LABS: BLOOD UREA NITROGEN 53 MG/DL (7-18); CALCIUM LEVEL 9.5 MG/DL (8.8-10.2); CARBON DIOXIDE LEVEL 30 MEQ/L (21-32); CHLORIDE LEVEL 103 MEQ/L (98-107); CREATININE FOR GFR 0.68 MG/DL (0.55-1.30); GLOMERULAR FILTRATION RATE > 60.0 (>32); GLUCOSE, FASTING 213 MG/DL (70-100); POTASSIUM SERUM 4.9 MEQ/L (3.5-5.1); SODIUM LEVEL 138 MEQ/L (136-145)
--- NOTE | 2021-01-13 17:26 | IPNPDOC ---
Subjective Date Seen The patient was seen on 01/13/21. Subjective Chief Complaint/HPI Mrs. 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 Patient was seen in the morning. Denies any chest pain or shortness of breath. Hemoglobin responded appropriately to 2 units of blood and stayed stable. Patient is ready for ARU, pending bed availability. Objective Physical Examination General Exam: Positive: Cooperative Eye Exam: Negative: Sclera icteric ENT Exam: Positive: Atraumatic Neck Exam: Positive: Supple Chest Exam: Positive: Clear to auscultation Heart Exam: Positive: Rate Normal, Regular Rhythm Abdomen Exam: Positive: Normal bowel sounds, Soft; Negative: Tenderness Extremity Exam: Positive: Edema Assessment /Plan Assessment Mrs. 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 Patient was approved for ARU. Pending bed availability. Otherwise patient demonstrated acute anemia today. This may have made her back pain worse. Receiving 2 units of blood. Reticulocyte index was 0.67 suggesting hypoproliferation. Iron was low but ferritin was elevated which may suggest anemia of chronic disease. Hemoglobin last night responded appropriately to blood transfusion and the following mo rning remained stable. Patient is medically stable for ARU, pending bed availability. Plan/VTE VTE Prophylaxis Ordered?: Yes Plan 1. Metastatic disease to the lungs, ribs, and brain Biopsy results demonstrated small cell cancer, neuroendocrine origin, primary unknown Radiation/oncology consulted and recommendations appreciated. Patient had first treatment on 01/11/2021 Patient will need to follow-up with oncology outpatient Continue with Keppra 500 twice daily and Decadron 4 mg twice daily 2. CVA MRI brain demonstrated 2 tiny probable acute/subacute cortical infarcts in the right parietal convexity MRA brain negative Ultrasound carotids negative Echocardiogram demonstrates EF of 60 to 65% and grade 1 diastolic dysfunction. Patient refused bubble study Continue aspirin and Zocor 3. Acute anemia of chronic disease Hemoglobin had dropped to 6.9 from 7.8. Patient be transfused 2 units of blood Reticulocyte index was 0.67 suggestive of hypoproliferation Iron studies suggest anemia of chronic disease Responded appropriately to blood transfusion and remained stable 4. Leukocytosis Patient afebrile and blood cultures negative to date. UA negative Unlikely infectious source May be reactive to steroids versus cancer Monitor 5. Hypothyroidism Continue levothyroxine 6. Hypertension Continue losartan 7. Hyperlipidemia Continue Zocor 8. DVT prophylaxis SCDs and teds Disposition: Approved for ARU. Patient is medically stable. Pending bed availability. VS, I&O, 24H, Fishbone Vital Signs/I&O Vital Signs Date Time Temp Pulse Resp B/P (MAP) Pulse Ox O2 Delivery O2 Flow Rate FiO2 01/13/21 14:00 97.4 68 16 143/65 (91) 97 Room Air I&O- Last 24 Hours up to 6 AM 01/13/21 06:00 Intake Total 1640 ml Output Total 850 ml Balance 790 ml Laboratory Data 24H LABS Laboratory Tests 2 01/12/21 22:31: Nucleated Red Blood Cells % (auto) 0.0 01/13/21 07:58: Nucleated Red Blood Cells % (auto) 0.0, Anion Gap 3L, Glomerular Filtration Rate > 60.0, Calcium Level 9.4 01/13/21 13:20: Anion Gap 5L, Glomerular Filtration Rate > 60.0, Calcium Level 9.5 CBC/BMP Laboratory Tests 01/12/21 22:31 01/13/21 07:58 01/13/21 13:20 Microbiology Microbiology 01/08/21 Blood Culture - Final, Complete NO GROWTH AFTER 5 DAYS 01/08/21 Blood Culture - Final, Complete NO GROWTH AFTER 5 DAYS AD COLBY DO Jan 13, 2021 17:26
[2021-01-13 20:00] VITALS: BP 131/61
[2021-01-13 20:49] VITALS: BP 131/61
[2021-01-13] MEDS: LOSARTAN 50MG TABLET PO SCH (20:49)
[2021-01-13] MEDS: SIMVASTATIN 20 MG TAB PO SCH (20:49)
[2021-01-13] MEDS ORDERED: MORPHINE 2 MG/ML 1ML VIAL (J2270) IV PRN (22:25)
[2021-01-14] MEDS: PERCOCET 5MG/325MG TAB PO PRN ×2 (04:25→11:38)
[2021-01-14] MEDS: LEVOTHYROXINE 112MCG TABLET (0.112MG) PO SCH (05:55)
[2021-01-14] MEDS: KETOROLAC 30 MG/ML 1ML VIAL IV PRN (05:55)
[2021-01-14 06:00] VITALS: BP 123/64
[2021-01-14 07:11] LABS: HEMATOCRIT 29.2 % (36.0-47.0); HEMOGLOBIN 9.2 g/dl (12.0-15.5); MEAN CORPUSCULAR HEMOGLOBIN 28.7 pg (27.0-33.0); MEAN CORPUSCULAR HGB CONC 31.5 g/dl (32.0-36.5); PLATELET COUNT, AUTOMATED 564 10^3/uL (150-450); RED BLOOD COUNT 3.21 10^6/uL (4.00-5.40)
[2021-01-14 07:24] LABS: WHITE BLOOD COUNT 34.4 10^3/uL (4.0-10.0)
[2021-01-14 07:35] LABS: BLOOD UREA NITROGEN 44 MG/DL (7-18); CALCIUM LEVEL 8.8 MG/DL (8.8-10.2); CARBON DIOXIDE LEVEL 29 MEQ/L (21-32); CHLORIDE LEVEL 104 MEQ/L (98-107); CREATININE FOR GFR 0.61 MG/DL (0.55-1.30); GLOMERULAR FILTRATION RATE > 60.0 (>32); GLUCOSE, FASTING 115 MG/DL (70-100); POTASSIUM SERUM 5.1 MEQ/L (3.5-5.1); SODIUM LEVEL 140 MEQ/L (136-145)
[2021-01-14] MEDS: NICOTINE 7 MG/24 HR TRANSDERMAL TD SCH (08:57)
[2021-01-14] MEDS: ASPIRIN 81MG ENTERIC TABLET PO SCH (08:57)
[2021-01-14] MEDS: PANTOPRAZOLE 40MG TAB (PROTONIX) PO SCH (09:00)
[2021-01-14] MEDS: MAGNESIUM OXIDE 400MG TAB (MAG-OX) PO SCH (09:00)
[2021-01-14] MEDS: FUROSEMIDE 40 MG TAB PO SCH (09:00)
[2021-01-14] MEDS: levETIRAcetam 250MG TABLET (KEPPRA) PO SCH ×2 (09:01→21:00)
[2021-01-14 09:06] VITALS: BP 119/61
[2021-01-14] MEDS ORDERED: SCOPOLAMINE 1MG TRANSDERMAL PATCH TOP PRN (12:10)
[2021-01-14] MEDS ORDERED: LORazepam 1 MG TAB PO PRN (12:10)
[2021-01-14] MEDS ORDERED: HYOSCYAMINE SULFATE 0.125 MG SUBL TABLET PO PRN (12:10)
--- NOTE | 2021-01-14 13:13 | IPNPDOC ---
Subjective Date Seen The patient was seen on 01/14/21. Subjective Chief Complaint/HPI Mrs. 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 Overnight she required morphine for pain. This morning she denies any chest pain or dyspnea, still has a low back pain. I spoke with the patient's daughters, Mirtha Byers ( ) and Lanny Partida, who are also health care proxy. We discussed patient's prognosis and functional status. Patient's prognosis is poor due to her metastatic disease and not wanted chemotherapy. The cancer will continue progressing, draining her of nutrients and energy. Patient's current functional status is also poor. She cannot participate with PT with ambulation. We spoke about BICYCLE MESSENGER and hospice and family was agreeable. I discuss this with the patient as well. She did not want chest compressions or to be put on a ventilator. I explained that if we don't treat the cancer with chemotherapy, the cancer will progress and anything we do would be futile. She understood and agreed with BICYCLE MESSENGER. She wanted to see her family members. Family members will come by to see patient today. Otherwise, I spoke with PFS. Working on hospice house placement as family is from out of town and would not be able to care for patient 31/10. Objective Physical Examination General Exam: Positive: Alert, Cooperative Eye Exam: Negative: Sclera icteric ENT Exam: Positive: Atraumatic Neck Exam: Positive: Supple Chest Exam: Positive: Clear to auscultation Heart Exam: Positive: Rate Normal, Regular Rhythm Abdomen Exam: Positive: Normal bowel sounds, Soft; Negative: Tenderness Extremity Exam: Positive: Edema Psych Exam: Positive: Mood NL Assessment /Plan Assessment Mrs. 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 Patient was approved for ARU. Pending bed availability. Otherwise patient demonstrated acute anemia today. This may have made her back pain worse. Receiving 2 units of blood. Reticulocyte index was 0.67 suggesting hypoproliferation. Iron was low but ferritin was elevated which may suggest anemia of chronic disease. Hemoglobin last responded appropriately to blood transfusion and the following morning remained stable. Patient's prognosis is poor with metastatic disease and poor functional status. Patient does not want chemotherapy. Spoke with patient and daughters (HCP). Agreeable to BICYCLE MESSENGER and hospice. Patient made BICYCLE MESSENGER 01/14/21. PFS working on hospice house. Plan/VTE VTE Prophylaxis Ordered?: Yes Plan 1. 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 CVA 3. Acute anemia of chronic disease 4. Leukocytosis 5. Hypothyroidism 6. Hypertension 7. Hyperlipidemia 8. Poor functional status. Has not been able to ambulate for physical therapy Disposition: Patient was made BICYCLE MESSENGER on 01/14/2021. Unable to provide 7 care at home. Looking for hospice house. Patient made ALC today. VS, I&O, 24H, Fishbone Vital Signs/I&O Vital Signs Date Time Temp Pulse Resp B/P (MAP) Pulse Ox O2 Delivery O2 Flow Rate FiO2 01/14/21 11:38 20 113/57 01/14/21 09:06 64 01/14/21 06:00 97.2 96 Room Air I&O- Last 24 Hours up to 6 AM 01/14/21 05:59 Intake Total 1510 ml Output Total 2200 ml Balance -690 ml Laboratory Data 24H LABS Laboratory Tests 2 01/13/21 13:20: Anion Gap 5L, Glomerular Filtration Rate > 60.0, Calcium Level 9.5 01/14/21 06:34: Anion Gap 7L, Glomerular Filtration Rate > 60.0, Calcium Level 8.8, Nucleated Red Blood Cells % (auto) 0.0 CBC/BMP Laboratory Tests 01/13/21 13:20 01/14/21 06:34 Microbiology Microbiology 01/08/21 Blood Culture - Final, Complete NO GROWTH AFTER 5 DAYS 01/08/21 Blood Culture - Final, Complete NO GROWTH AFTER 5 DAYS AD COLBY DO Jan 14, 2021 13:13
[2021-01-14 14:00] VITALS: BP 133/60
[2021-01-14] MEDS: MORPHINE 10MG/0.5ML ORAL CONCENTRATE SOLUTION U/D SL PRN (22:20)
[2021-01-15] MEDS: MORPHINE 10MG/0.5ML ORAL CONCENTRATE SOLUTION U/D SL PRN (06:32)
[2021-01-15] MEDS ORDERED: PRED10TA2 PO (08:05)
[2021-01-15] MEDS ORDERED: ATIV1TAB10 PO (08:05)
[2021-01-15] MEDS ORDERED: HYOS125TA PO (08:05)
[2021-01-15] MEDS ORDERED: MORP1SOL5 PO (08:05)
[2021-01-15] MEDS: levETIRAcetam 250MG TABLET (KEPPRA) PO SCH ×2 (09:00→09:39)
--- NOTE | 2021-01-15 16:17 | DS.PDOC ---
Discharge Summary General Date of Admission Jan 06, 2021 at 17:44 Date of Discharge Jan 15, 2021 Specialist/Consultants [facility], Dr. Vivar Discharge Summary PROCEDURES PERFORMED DURING STAY: Palliative whole brain radiation by radiation oncology, Dr. Russell ADMITTING DIAGNOSES: 1. COURT TRANSCRIBER tumor 2. Subacute CVA 3. Hypertension 4. Hyperlipidemia 5. Hypothyroidism 6. Anemia of chronic disease 7. Poor functional status DISCHARGE DIAGNOSES: 1. 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 Subacute CVA 3. Hypertension 4. Hyperlipidemia 5. Hypothyroidism 6. Acute anemia of chronic disease 7. Poor functional status COMPLICATIONS/CHIEF COMPLAINT: Ischemic Cva, Lesion Of Frontal Lobe Of Brain. HISTORY OF PRESENT ILLNESS: Copied from admitting attendings H&P " 89 year old female presents for right sided weakness and difficulty swallowing which started 2-3 days ago. Her weakness has improved, and she feels her dysphagia has resolved. On examination she denies chest pain, shortness of breath, abdominal pain, nausea, vomiting, diarrhea, headaches, changes in vision or depressed mood. " HOSPITAL COURSE: On admission, CT head was suspicious for mass. MRI brain with and without contrast demonstrated a mass suspicious for high grade primary malignancy or metastatic lesion. CT patino scan demonstrated metastatic lesions in the lung, rib, and possibly the stomach. Patient did not want chemotherapy. Neurology was consulted. Recommended Keppra, steroids, and consultation with radiation oncology. Radiation oncology recommended palliative brain radiation to shrink the brain mass and give her mental clarity. It is not painful to the patient. Patient had about 3 sessions before discharge. During hospitalization, patient developed anemia and was given 2 units of blood. Patient's hemoglobin responded appropriately and maintained stability. Patient worked with physical therapy and did not do well. She was very weak and not ambulatory. I had a discussion with the family and patient. Family and patient agreed that patient did not want chest compressions or to be intubated (put on life support). Then I discussed her cancer and prognosis. The cancer has m etastasized and will continue to grow and consume the body. Radiation won't treat the cancer that has escaped and spread throughout the body. Chemotherapy might be able to help, but with poor functioning status, she may not tolerate chemotherapy. What we can try to do would be futile. The other option would be to provide quality of life knowing that her life span would be shortened. 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 Patient and family agreed to MATERIAL ENGINEER. Patient was made comfortable on 01/14/21. Today, she felt well. Denied chest pain or dyspnea. She still had chronic low back pain, but they were giving her pain medication. Patient will be taken to the hospice facility today. DISCHARGE MEDICATIONS: Please see below. ALLERGIES: Please see below. PHYSICAL EXAMINATION ON DISCHARGE: VITAL SIGNS: Please see below. GENERAL: Comfortable, in no apparent distress HEENT: Head normocephalic NECK: Supple SKIN: No rashes NEUROLOGICAL: Facial right droop PSYCHIATRIC EXAMINATION: Normal mood and affect LABORATORY DATA: Please see below. IMAGING: Radiologist interpretation CT head without contrast Vascular calcification, generalized volume loss and small vessel changes are seen. There is also a inhomogeneous mixed density lesion in the right frontal lobe of uncertain significance. Mass suspected. The subacute infarction less likely. Consider MRI scanning, preferably without and with IV gadolinium. Failing this, postcontrast CT may provide additional information. MRI brain with and without contrast 1. 3 cm right frontal lobe mass concerning for a high-grade primary COURT TRANSCRIBER malignancy or metastatic lesion 2. Two tiny probable acute/subacute cortical infarcts in the right parietal convexity 3. Pansinusitis MRA head No acute abnormality. CT abdomen pelvis with contrast 1. Somewhat irregular thick-walled appearance of the gastric body, which could represent infiltrative gastric neoplasm . No obstructive change. Consider upper endoscopy. 2. Colonic diverticulosis without active inflammation. CT chest with contrast Large bilateral complex lung masses, with measurements given above and cavitary appearance of the superior 7 left lower lobe, with metastatic left 6th ribs involvement, and spiculated left upper lobe mass also consistent with malignancy. Ultrasound carotids bilaterally Less than 50% category narrowing in the right internal carotid artery by Doppler velocity criteria. Less than 50% category narrowing in the left ICA by Doppler velocity criteria. 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 DIET: As tolerated DISCHARGE PLAN: Hospice facility DISPOSITION: Hospice facility DISCHARGE INSTRUCTIONS: 1. Follow up with hospice provider DISCHARGE CONDITION: Stable. Total time spent on discharge planning, discharge summary, and medication reconciliation: 35 minutes Vital Signs/I&Os Vital Signs Date Time Temp Pulse Resp B/P (MAP) Pulse Ox O2 Delivery O2 Flow Rate FiO2 01/15/21 07:02 16 01/14/21 14:00 96.6 62 133/60 (84) 96 Room Air I&O- Last 24 Hours up to 6 AM 01/15/21 06:00 Intake Total 600 ml Output Total 700 ml Balance -100 ml Laboratory Data Labs 24H Laboratory Tests 2 01/14/21 16:21: Coronavirus (COVID-19)(PCR) NEGATIVE Microbiology Microbiology 01/08/21 Blood Culture - Final, Complete NO GROWTH AFTER 5 DAYS 01/08/21 Blood Culture - Final, Complete NO GROWTH AFTER 5 DAYS Discharge Medications Scheduled Prednisone (Prednisone) 10 Mg Tablet, 10 MG PO TAPER Take 4 tabs daily x 3 days, then 3 tabs daily x 3 days, then 2 tabs daily x 3 days, then 1 tab daily x 3 days and stop Scheduled PRN Hyoscyamine Sulfate (Hyoscyamine Sulfate) 0.125 Mg Tab.subl, 0.125 MG PO Q4HP PRN for TERMINAL SECRETIONS Use sublingually if unable to swallow Lorazepam (Ativan) 0.5 Mg Tablet, 0.5 MG PO Q4HP PRN for ANXIETY/AGITATION Use sublingually if unable to swallow Morphine Sulfate (Morphine Sulfate) 100 Mg/5 Ml Solution, 0.25-1 ML PO Q2H PRN for PAIN OR DYSPNEA Use sublingually if unable to swallow Allergies Coded Allergies: No Known Allergies (Unverified , 01/30/19) AD COLBY DO Jan 15, 2021 16:17
== END 2021-01-15 10:31 | disposition hospice, home (50) | DRG 54 ==
LOC: M ED 11:43 → EDBD 11:43 → M ED INP 17:44 → ENRESERV 21:58 → M PCU 22:44 → M MSPAV 01-11 17:19
PROVIDERS: ADMIT Internal Medicine; ATTEND Internal Medicine
PROC: 0BBF3ZX Excision of Right Lower Lung Lobe, Percutaneous Approach, Diagnostic (ICD-10-PCS; principal; 2021-01-07 11:27)
PROC: 30233N1 Transfusion of Nonautologous Red Blood Cells into Peripheral Vein, Percutaneous Approach (ICD-10-PCS; 2021-01-12)
DX: C71.1 Malignant neoplasm of frontal lobe (principal); I63.9 Cerebral infarction, unspecified; G93.6 Cerebral edema; C79.51 Secondary malignant neoplasm of bone; C34.31 Malignant neoplasm of lower lobe, right bronchus or lung; D62 Acute posthemorrhagic anemia; I10 Essential (primary) hypertension; E78.5 Hyperlipidemia, unspecified; E03.9 Hypothyroidism, unspecified; G62.9 Polyneuropathy, unspecified; F17.210 Nicotine dependence, cigarettes, uncomplicated; Z20.822 Contact with and (suspected) exposure to COVID-19; Z79.82 Long term (current) use of aspirin; Z79.899 Other long term (current) drug therapy; Z66 Do not resuscitate; D72.829 Elevated white blood cell count, unspecified; Z51.5 Encounter for palliative care

== ENCOUNTER 2021-01-14 14:12 | Outpatient (RCR) | payer MEDICARE, BC ==
[~2021-01-14 14:12] MED LIST changes: +ASPI-161 PO; +FURO40TA2 PO; +LOSA50TA28 PO; -LOSA50TA88 PO; +OMEP-173 PO; -OMEP-218 PO; +PANT40TA29 PO
[2021-01-15] MEDS ORDERED: HYOS125TA PO (08:05)
[2021-01-15] MEDS ORDERED: MORP1SOL5 PO (08:05)
[2021-01-15] MEDS ORDERED: PRED10TA2 PO (08:05)
[2021-01-15] MEDS ORDERED: ATIV1TAB10 PO (08:05)
== END 2021-02-07 | disposition still patient (30) ==
LOC: M ONCR 14:12
PROVIDERS: ATTEND General Practice
DX: C79.31 Secondary malignant neoplasm of brain (principal)